=== PATIENT | female | born 1940 | race Caucasian/White ===

== ENCOUNTER 2016-11-14 05:17 | Day surgery (SDC) | payer MEDICARE, OTHER ==
[2016-11-14] MEDS ORDERED: Scopolamine 1.5 MG Transdermal Patch TOP SCH (05:30)
[2016-11-14] MEDS ORDERED: Lactated Ringers 1,000 ML IV SCH (06:00)
[2016-11-14] MEDS ORDERED: ceFAZolin 2 GM in Sodium Chloride 0.9% 50 ML IV ONE (06:30)
[2016-11-14] MEDS ORDERED: Gentamicin 40 MG/ML 2 ML Vial ONE (06:35)
[2016-11-14] MEDS ORDERED: Ketamine 500 MG/5 ML MDV IV SCH (07:30)
[2016-11-14] MEDS ORDERED: Propofol 200 MG/20 ML SDV ONE ×3 (07:47→09:18)
[2016-11-14] MEDS ORDERED: Ketamine 500 MG/5 ML MDV ONE (07:47)
[2016-11-14] MEDS ORDERED: fentaNYL 100 MCG/2 ML SDV ONE (07:47)
[2016-11-14] MEDS ORDERED: Midazolam 1 MG/ML 2 ML SDV ONE (07:47)
[2016-11-14] MEDS: Tranexamic Acid 950 MG in Sodium Chloride 0.9% 50 ML IV SCH ×2 (07:55→10:47)
[2016-11-14] MEDS ORDERED: Ropivacaine 49.25 ML, Ketorolac 30 MG, EPINEPHrine 0.5 MG, cloNIDine 80 MCG, Sodium Chl... INJECT SCH ×5 (08:00)
[2016-11-14] MEDS ORDERED: Lactated Ringers 1,000 ML ONE (09:25)
[2016-11-14] MEDS ORDERED: Ondansetron 4 MG/2 ML SDV IVPUSH PRN (10:41)
[2016-11-14] MEDS ORDERED: Zolpidem 5 MG Tab PO PRN (10:41)
[2016-11-14] MEDS ORDERED: Sennosides 8.6 MG Tab PO PRN (10:41)
[2016-11-14] MEDS ORDERED: Naloxone 0.4 MG/ML SDV IVPUSH PRN (10:41)
[2016-11-14] MEDS ORDERED: traMADol 50 MG Tab PO PRN (10:41)
[2016-11-14] MEDS ORDERED: Bisacodyl 5 MG Tab PO PRN (10:41)
[2016-11-14] MEDS ORDERED: Magnesium Hydroxide 400 MG/5 ML Susp 30 ML Cup PO PRN (10:41)
[2016-11-14] MEDS ORDERED: diphenhydrAMINE 50 MG/ML SDV IVPUSH PRN (10:41)
[2016-11-14] MEDS ORDERED: Aluminum Hydroxide/Magnesium Hydroxide/Simethicone Susp 30 ML Cup PO PRN (10:41)
[2016-11-14] MEDS ORDERED: Docusate Sodium 100 MG Cap PO PRN (10:41)
[2016-11-14] MEDS: Acetaminophen/oxyCODONE 325-5 MG Tab PO PRN ×2 (12:05→20:24)
[2016-11-14] MEDS: SCOPOLAMINE PATCH CHECK TOP SCH (12:09)
--- NOTE | 2016-11-14 12:20 | CR ---
Knee 1V or 2V Lt INDICATION: LEFT KNEE ARTHROPLASTY FINDINGS: Postoperative changes left medial compartment hemiarthroplasty. Negative for postoperative purposes.
[2016-11-14] MEDS: Morphine 2 MG/ML Syringe IVPUSH PRN ×2 (12:43→22:26)
[2016-11-14] MEDS: ceFAZolin 2 GM in Sodium Chloride 0.9% 50 ML IV SCH ×2 (14:27→22:15)
[2016-11-14] MEDS ORDERED: Clindamycin HCl 150 MG Cap PO SCH (16:00)
[2016-11-14] MEDS: Ketorolac 30 MG/ML SDV IVPUSH SCH (16:35)
[2016-11-14] MEDS: Doxycycline 100 MG Cap PO SCH (20:18)
[2016-11-14] MEDS: Trospium 20 MG Tab PO SCH (22:14)
[2016-11-15] MEDS: Ketorolac 30 MG/ML SDV IVPUSH SCH ×2 (01:02→08:55)
[2016-11-15] MEDS: Acetaminophen/oxyCODONE 325-5 MG Tab PO PRN ×3 (05:29→13:19)
[2016-11-15] MEDS: ceFAZolin 2 GM in Sodium Chloride 0.9% 50 ML IV SCH (05:37)
[2016-11-15 07:11] VITALS: BP 147/66
[2016-11-15] MEDS: Pantoprazole 40 MG Tab.CR PO SCH ×2 (07:18→07:37)
[2016-11-15] MEDS: Trospium 20 MG Tab PO SCH (07:45)
[2016-11-15] MEDS: Doxycycline 100 MG Cap PO SCH (07:45)
--- NOTE | 2016-11-15 08:34 | OR ---
DATE OF PROCEDURE: 11/14/2016 PREOPERATIVE DIAGNOSIS: Left knee primary osteoarthritis. POSTOPERATIVE DIAGNOSIS: Left knee primary osteoarthritis. PROCEDURE: Left knee unicompartmental medial arthroplasty. WOODS OVERSEER: Tiara Hicks NP. ANESTHESIA: Spinal plus conscious sedation. FLUID: Lactated Ringer solution. ESTIMATED BLOOD LOSS: 150 mL. COMPLICATIONS: None. SPECIMEN: None. DISCHARGE DISPOSITION: Stable to PACU. HISTORY AND INDICATIONS FOR PROCEDURE: The patient was seen preoperatively in the clinic. She had failed nonoperative treatment. Preoperative imaging confirmed the above-mentioned diagnosis. Risks and benefits of the procedure were explained to the patient. Informed consent was obtained. DETAILS OF PROCEDURE: The patient was seen preoperatively by myself and the Anesthesia Staff in the preop holding area, where the operative site was marked. She was brought to the operative suite by the Anesthesia Staff where spinal anesthesia and conscious sedation was administered. A Rivero catheter was sterilely put in. A well-padded tourniquet was placed on the left thigh. The left leg was placed in a thigh ramos, and the right leg had a pillow. All extremities were found to be well padded. The left lower extremity was then prepped and draped in sterile manner. Time-out was called identifying the correct patient, correct procedure, the correct site, and antibiotics had been given with appropriate period of time. The left lower extremity was then raised and then Esmarch was placed and exsanguinated. Tourniquet was raised to 300 mmHg and taken down 97 minutes after cementing. The incision was made from the medial aspect of the superior pole of the patella down to the level of the medial aspect of the tibial tubercle approximately 3.5 cm distal to the joint line. DLPs were was used for traction and then an arthrotomy was made in the same line. Bleeding was controlled with Bovie electrocautery as well as Aquamantys unit during the procedure. The infrapatellar fat pad was removed as well as the anterior portion of the medial meniscus. The medial proximal tibia was visualized using Bovie electrocautery. I then used the extramedullary tibial. I placed #1 spoon which provided good stability and then used an extramedullary tibial guide for approximately 77 degree slope and removing 2 mm below the deepest part of the eroded medial tibial plateau. I made my vertical cut using a reciprocating saw. After measuring with a hook how far it was to the back and then marking that on my saw. I then cut the horizontal cut. I did use a +2 deborah for that first cut, it was found that when I inserted a 7 mm paddle that this was not deep enough, so I then used my standard and removed a little bit more bone. After this had been accomplished, we measured the base plate against the contralateral trial. I then drilled into the distal femur 1 cm anterior to the medial condyle on its most medial aspect. I then inserted the markell. After that, I nisha the central third of the condyle with a marker and then I inserted my guide and set at 4 mm. I then drilled my 4 mm and 6 mm hole and then removed my femoral guide and then used an 0 spigot to remove a portion of the medial condyle. I then inserted my femoral trial and a baseplate. This measured 4 in flexion at 100 degrees, and I was unable to inserted a #1 plate in extension in 20 degrees of extension. Therefore, I used a #4 spigot and after each time I used a spigot, I used a curved osteotome to remove part of the condyle as well as the area where the spigot inserted. After multiple trials, I finally went to a #5 spigot and #6 spigot. This provided equal stability in 100 degrees of flexion and 20 degrees of extension with a 4 insert. After that had been accomplished, we then focused on preparation. I then inserted my femoral guide and then took off a very small portion of the condyle. Prior to inserting the femoral trial, I did use the guide to make one of my posterior cuts on the posterior aspect of the condyle. Then, having prepared the femur, I then prepared the tibia by using the T hook against the back of the tibia to make sure of that my implant was anterior enough and having inserted the tibial baseplate for preparation. We then used a toothbrush saw and sought out a channel. I then removed the baseplate and then removed the bone from the channel from posterior to anteriorly. After this had been accomplished, we then inserted our final trial components with a 4 insert, this provided excellent stability. During the process of tibial preparation, it was noted that the horizontal cut appeared to be too medially for the baseplate coverage. Therefore, I did take a portion of the tibia which was cut and made a cut of approximately 3.5 mm and inserted this lateral to the baseplate, which provided excellent tracking. We then copiously irrigated with saline and then applied cement to the femur and tibial baseplate, and then placed my bone graft laterally next to the intact plateau and then inserted our femoral trial and a 4 paddle and kept in 45 degrees until cement had hardened. We then cemented our femur in place and let the tourniquet down after cementing. A great deal of care was taken to remove any cement during this process and irrigation was used multiple times in order to make sure that there was no extra cement left. I then inserted a 4 trial and provided excellent tracking. I tried to insert a five, but it was too tight. We then inserted our final #4 implant which provided good stability. I used a small amount of DBX putty over the bone graft, and I made sure that it was not going to come loose as it was held in place also by cement. We then irrigated with saline again, controlled any bleeders with Bovie electrocautery and Aquamantys unit and then closed with two #5 Ethibond and then 0 Vicryl interrupted sutures in a watertight manner followed by 2-0 subcu and 2-0 Monocryl and azucena followed by sterile dressing. The patient was then transferred to hospital bed and taken to the PACU in stable condition. Rivera Ann DO /[id number]
[2016-11-15] MEDS: SCOPOLAMINE PATCH CHECK TOP SCH (08:55)
[2016-11-15] MEDS ORDERED: Aspirin 325 MG Tab.EC PO SCH (09:00)
[2016-11-15] MEDS ORDERED: Sodium Chloride 0.9% 10 ML Syringe FLUSH SCH (09:00)
--- NOTE | 2016-11-15 10:54 | PCM.DCSUM1 ---
Discharge Summary - Hospital Course Free Text/Narrative:: Alicia is a pleasant 76 year old female who is status post op day 1 of a left partial knee replacement. She is doing well. She has no concerns at this time. She states that her pain is under control with oral pain medication. - Discharge Data Discharge Date: 11/15/16 Discharge Disposition: Home, Self-Care 01 Condition: Good - Discharge Diagnosis/Problem(s) (1) Status post left partial knee replacement SNOMED Code(s): 003819490, [id number], [id number] ICD Code: Z96.652 - PRESENCE OF LEFT ARTIFICIAL KNEE JOINT Status: Acute Current Visit: Yes - Patient Summary/Data Consults: Consultations 11/14/16 10:41 OT Evaluation and Treatment [CONS] Routine Please Evaluate and Treat. OT Reason for Consult: Strengthening This query below is only for informational purposes and is not editable. PT Evaluation and Treatment [CONS] Routine Please Evaluate and Treat. PT Reason for Consult: Strengthening This query below is only for informational purposes and is not editable. - Patient Instructions Diet: Usual Diet as Tolerated Activity: Apply Ice, As Tolerated, Elevate Extremity Driving: Do Not Drive Showering/Bathing: May Shower Wound/Incision Care: Keep Operative Site/Wound Site Clean and Dry, Change Dressing Daily Notify Provider of: Fever, Increased Pain, Swelling and Redness - Discharge Plan Prescriptions/Med Rec: Acetaminophen/oxyCODONE [Percocet 325-5 MG] 2 tab PO Q4H PRN #90 tablet PRN Reason: Pain Aspirin [Ecotrin] 325 mg PO DAILY #30 tab.ec Doxycycline Calcium [IMW: Doxycycline] 100 mg PO Q12H 14 Days Home Medications: Home Meds Multivitamin [Multi-Vitamin Daily] 1 each PO BEDTIME 04/22/13 [History] Omeprazole 40 mg PO DAILY 04/22/13 [History] Calcium Citrate/Vitamin D3 [Calcium Citrate + D] 1 tab PO BEDTIME 09/29/15 [ History] Trospium [Sanctura] 20 mg PO BID 09/29/15 [History] Ammonium Lactate [Lac-Hydrin 12% Crm] 1 applic TOP BID 02/14/16 [History] Cyanocobalamin (Vitamin B-12) [Vitamin B-12] 5,000 mcg SL DAILY 09/12/16 [ History] Lactobacillus Acidophilus [Probiotic Acidophilus] 1 each PO DAILY 02/14/16 [ History] Vitamin E 400 unit PO BEDTIME 02/14/16 [History] Bismuth Subsalicylate [Bismatrol] 2 tab PO QID PRN 11/10/16 [History] Gluc 2KCl/Chondr/Rosina Hy/Hy Ac [Glucosamine & Chondroitin Cap] 1 each PO DAILY 11/10/16 [History] Loperamide HCl [Anti-Diarrheal] 2 mg PO QID 11/10/16 [History] Trospium Chloride 20 mg PO BID 11/14/16 [History] Acetaminophen/oxyCODONE [Percocet 325-5 MG] 2 tab PO Q4H PRN #90 tablet [Rx] Aspirin [Ecotrin] 325 mg PO DAILY #30 tab.ec 11/15/16 [Rx] Doxycycline Calcium [IMW: Doxycycline] 100 mg PO Q12H 14 Days 11/15/16 [Rx] Referrals: Tiara Hicks, [facility] [facility] [Nurse Practitioner] - (2 week ortho follow up) - Discharge Summary/Plan Comment Discharge Summary/Plan Comment: At this time we will discharge the patient to home with assistance from her . She has PT appointments made for follow up. I will send her home with oral percocet. I want her to take Aspirin 325 daily for 1 month. She is to follow up with ortho clinic in 2 weeks. She is to increase her fluids to avoid constipation. - Patient Data Vitals - Most Recent: Last Vital Signs Temp 36.0 C 11/15/16 07:10 Pulse 78 11/15/16 07:10 Resp 16 11/15/16 07:10 BP 147/66 H 11/15/16 07:10 Pulse Ox 77 L 11/15/16 07:10 Weight - Most Recent: 202 lb I&O - Last 24 hours: Intake & Output 11/14/16 11/15/16 11/15/16 22:59 06:59 14:59 Intake Total 801 50 Output Total 1350 Balance -549 50 Lab Results - Last 24 hrs: Laboratory Results - last 24 hr 11/15/16 11/15/16 Range/Units 05:34 05:34 WBC 7.5 (4.5-11.0) K/uL RBC 4.22 (3.30-5.50) M/uL Hgb 13.6 (12.0-15.0) g/dL Hct 41.9 (36.0-48.0) % MCV 99 H (80-98) fL MCH 32 H (27-31) pg MCHC 33 (32-36) % Plt Count 167 (150-400) K/uL Neut % (Auto) 60 (36-66) % Lymph % (Auto) 28 (24-44) % [place] % (Auto) 10 H (2-6) % Eos % (Auto) 2 (2-4) % Baso % (Auto) 0 (0-1) % Sodium 139 L (140-148) mmol/L Potassium 3.9 (3.6-5.2) mmol/L Chloride 106 (100-108) mmol/L Carbon Dioxide 27 (21-32) mmol/L Anion Gap 9.9 (5.0-14.0) mmol/L BUN 8 (7-18) mg/dL Creatinine 0.7 (0.6-1.0) mg/dL Est Cr Clr Drug Dosing 56.56 mL/min Estimated GFR (MDRD) > 60 (>60) Glucose 114 H (74-106) mg/dL Calcium 8.6 (8.5-10.1) mg/dL Total Bilirubin 0.6 (0.2-1.0) mg/dL AST 39 H (15-37) U/L ALT 47 (12-78) U/L Alkaline Phosphatase 54 (46-116) U/L Total Protein 5.6 L (6.4-8.2) g/dL Albumin 2.8 L (3.4-5.0) g/dL Globulin 2.8 (2.3-3.5) g/dL Albumin/Globulin Ratio 1.0 L (1.2-2.2) Med Orders - Current: Current Medications Al Hydroxide/Mg Hydroxide (Mag-Al Plus) 30 ml PO Q4H PRN PRN Reason: Constipation Aspirin (Ecotrin) 325 mg PO BID LUIS A Last Admin: 11/15/16 08:55 Dose: 325 mg Bisacodyl (Dulcolax) 10 mg PO DAILY PRN PRN Reason: Constipation Diazepam (Valium) 5 mg IVPUSH Q6H PRN PRN Reason: Spasms Last Admin: 11/15/16 07:37 Dose: 5 mg Diphenhydramine HCl (Benadryl) 25 mg IVPUSH Q4H PRN PRN Reason: Itching Docusate Sodium (Colace) 100 mg PO BID PRN PRN Reason: Constipation Doxycycline Hyclate (Vibramycin) 100 mg PO Q12H [facility] Last Admin: 11/15/16 07:45 Dose: 100 mg Lactated Ringer's (Ringers, Lactated) 1,000 mls @ 0 mls/hr IV ASDIRECTED [facility] PRN Reason: KVO Last Admin: 11/14/16 06:25 Dose: 25 mls/hr Magnesium Hydroxide (Milk Of Magnesia) 30 ml PO BID PRN PRN Reason: Constipation Morphine Sulfate (Morphine) 2 mg IVPUSH Q2H PRN PRN Reason: Pain Last Admin: 11/14/16 22:26 Dose: 1 mg Scopolamine Patch (Check) 1 each TOP DAILY [facility] Last Admin: 11/15/16 08:55 Dose: 1 each Ondansetron HCl (Zofran) 8 mg IVPUSH Q4H PRN PRN Reason: Nausea/Vomiting Oxycodone/Acetaminophen (Percocet 325-5 Mg) 2 tab PO Q4H PRN PRN Reason: Pain Last Admin: 11/15/16 09:32 Dose: 2 tab Pantoprazole Sodium (Protonix) 40 mg PO ACBREAKFAST [facility] Last Admin: 11/15/16 07:37 Dose: 40 mg Scopolamine (Transderm-Scop) 1.5 mg TOP Q72H [facility] Stop: 11/17/16 03:30 Last Admin: 11/14/16 06:23 Dose: 1.5 mg Senna (Senna) 8.6 mg PO BID PRN PRN Reason: Constipation Sodium Chloride (Saline Flush) 10 ml FLUSH DAILY [facility] Last Admin: 11/15/16 08:58 Dose: 10 ml Tramadol HCl (Ultram) 100 mg PO Q6H PRN PRN Reason: Pain Last Admin: 11/14/16 14:27 Dose: 100 mg Trospium (Sanctura) 20 mg PO BIDAC [facility] Last Admin: 11/15/16 07:45 Dose: 20 mg Zolpidem Tartrate (Ambien) 5 mg PO BEDTIME PRN PRN Reason: Sleep Discontinued Medications Clindamycin HCl (Cleocin) 450 mg PO Q6H [facility] Stop: 11/21/16 16:01 Last Admin: 11/14/16 16:19 Dose: 450 mg Ropivacaine 49.25 ml/Ketorolac Tromethamine 30 mg/Epinephrine HCl 0.5 mg/ Clonidine HCl 80 mcg/ Sodium Chloride 48.45 ml 0 ml INJECT ASDIRECTED [facility] Stop: 11/14/16 08:01 Last Admin: 11/14/16 09:18 Dose: 2 syringe Fentanyl (Sublimaze) Confirm Administered Dose 100 mcg .ROUTE .STK-MED ONE Stop: 11/14/16 07:48 Gentamicin Sulfate (Gentamicin) Confirm Administered Dose 320 mg .ROUTE .STK- MED ONE Stop: 11/14/16 06:36 Last Admin: 11/14/16 08:37 Dose: 240 mg Cefazolin Sodium 2 gm/ Sodium (Chloride) 50 mls @ 100 mls/hr IV ONETIME ONE Stop: 11/14/16 06:59 Last Admin: 11/14/16 07:46 Dose: 100 mls/hr Tranexamic Acid 950 mg/ Sodium (Chloride) 59.5 mls @ 238 mls/hr IV Q3H [facility] Stop: 11/14/16 10:44 Last Admin: 11/14/16 10:47 Dose: 238 mls/hr Lactated Ringer's (Ringers, Lactated) Confirm Administered Dose 1,000 mls @ as directed .ROUTE .STK-MED ONE Stop: 11/14/16 09:26 Cefazolin Sodium 2 gm/ Sodium (Chloride) 50 mls @ 100 mls/hr IV Q8H [facility] Stop: 11/15/16 06:29 Last Admin: 11/15/16 05:37 Dose: 100 mls/hr Ketamine HCl (Ketalar) Confirm Administered Dose 500 mg .ROUTE .STK-MED ONE Stop: 11/14/16 07:48 Ketorolac Tromethamine (Toradol) 15 mg IVPUSH Q8H [facility] Stop: 11/15/16 09:01 Last Admin: 11/15/16 08:55 Dose: 15 mg Midazolam HCl (Versed 1 Mg/Ml) Confirm Administered Dose 2 mg .ROUTE .STK-MED ONE Stop: 11/14/16 07:48 Naloxone HCl (Narcan) 0.1 mg IVPUSH ONETIME PRN PRN Reason: Oversedation Stop: 11/14/16 10:42 Propofol (Diprivan 20 Ml) Confirm Administered Dose 200 mg .ROUTE .STK-MED ONE Stop: 11/14/16 07:48 Propofol (Diprivan 20 Ml) Confirm Administered Dose 200 mg .ROUTE .STK-MED ONE Stop: 11/14/16 08:33 Propofol (Diprivan 20 Ml) Confirm Administered Dose 200 mg .ROUTE .STK-MED ONE Stop: 11/14/16 09:19 - Exam General: Reports: alert, oriented Extremities: Reports: no edema, normal pulses, no tenderness/swelling Skin: Reports: warm, dry, intact Wound/Incisions: Reports: healing well, dressing dry and intact, no drainage *Q Meaningful Use (DIS) - VTE *Q VTE Criteria *Q: - Stroke *Q Stroke Criteria *Q: - AMI *Q AMI Criteria *Q:
== END 2016-11-15 14:11 | disposition home or self-care (01) ==
LOC: JP.SDS 05:17 → JP.MS 11:15 → JP.SDS 11-15 14:11
PROVIDERS: ATTEND Orthopaedic Surgery
PROC: 0SRD0L9 Replacement of Left Knee Joint with Medial Unicondylar Synthetic Substitute, Cemented, Open Approach (ICD-10-PCS; principal; 2016-11-14)
DX: M17.12 Unilateral primary osteoarthritis, left knee (principal); E78.00 Pure hypercholesterolemia, unspecified; N39.490 Overflow incontinence; G62.9 Polyneuropathy, unspecified; E66.9 Obesity, unspecified; K31.84 Gastroparesis; K21.9 Gastro-esophageal reflux disease without esophagitis; Z79.82 Long term (current) use of aspirin; Z79.899 Other long term (current) drug therapy
CPT/HCPCS: 27446; 36415; 73560; 80048; 80053; 85025; 85027; 86850; 86900; 86901; 94762; 97110; 97162; 97165; 97530; 97535; A9270; J0690; J1580; J1885; J2250; J2270; J2704; J2795; J3010; J3360; J7050; J7120; C1776

== ENCOUNTER 2017-03-29 07:18 | Day surgery (SDC) | payer MEDICARE, OTHER ==
[~2017-03-29 07:18] MED LIST: Midazolam 1 MG/ML 2 ML SDV ONE; Propofol 200 MG/20 ML SDV ONE; fentaNYL 100 MCG/2 ML SDV ONE
[2017-03-29] MEDS ORDERED: Dextrose 5%-Lactated Ringers 1,000 ML IV SCH (08:30)
[2017-03-29] MEDS ORDERED: Glycopyrrolate 0.2 MG/ML 2 ML SDV IVPUSH ONE (08:30)
[2017-03-29] MEDS ORDERED: Ampicillin/Sulbactam Na 3 GM in Sodium Chloride 0.9% 100 ML IV ONE (09:00)
[2017-03-29] MEDS ORDERED: Glycopyrrolate 0.2 MG/ML 5 ML MDV ONE (09:36)
[2017-03-29] MEDS ORDERED: Rocuronium 50 MG/5 ML Vial ONE (09:36)
[2017-03-29] MEDS ORDERED: Ondansetron 4 MG/2 ML SDV ONE (09:36)
[2017-03-29] MEDS ORDERED: Succinylcholine 200 MG/10 ML MDV ONE (09:36)
[2017-03-29] MEDS ORDERED: Dexamethasone 4 MG/ML SDV ONE (09:36)
[2017-03-29] MEDS ORDERED: Neostigmine Methylsulfate 1 MG/ML 5 ML Syringe ONE (09:36)
[2017-03-29] MEDS ORDERED: fentaNYL 100 MCG/2 ML SDV ONE (09:37)
[2017-03-29] MEDS ORDERED: Lactated Ringers 1,000 ML ONE (09:38)
[2017-03-29 12:04] VITALS: BP 157/98
--- NOTE | 2017-04-02 17:52 | OR ---
DATE OF PROCEDURE: 03/29/2017 PREOPERATIVE DIAGNOSIS: History of Schultz's esophagus. POSTOPERATIVE DIAGNOSES: 1. History of Schultz's esophagus without significant inflammation of the esophagogastric junction. 2. Mild antral gastritis. OPERATIVE PROCEDURE: Esophagogastroduodenoscopy with: 1. Biopsies of antrum for SUE test. 2. Biopsies of esophagogastric junction for histologic evaluation. ANESTHESIA: IV sedation. INDICATIONS FOR PROCEDURE: A 76-year-old female presenting after followup of her Schultz's esophagus. She is presently on omeprazole 40 mg a day. From a reflux standpoint, she appears to be well controlled. Of note, she recently was seen by the Gastroenterology people in [place] and started on anti- diarrhea regimen, which has been very effective. The plan is to proceed with upper GI endoscope with biopsies as indicated. Potential risks, including bleeding and perforation, were discussed and the patient wishes to proceed. DETAILS OF THE PROCEDURE: The patient was taken to the operating room, placed in a left lateral decubitus position. IV sedation was administered, after which the upper GI endoscope was passed orally through the length of the esophagus, into the stomach with retroflex view of the fundus, and thereafter through the pyloric channel and into the proximal duodenum. Findings included normal hypopharynx, larynx, upper esophageal sphincter, and esophageal body. At the EG junction, a small hiatal hernia was present. There was visible upward extension of the esophagogastric junction, but this was not associated with any significant gross information. Apart from that, within the antrum, there was some mild gastritis without erosions or ulcers, and the pyloric channel and duodenum to the junction of the third and fourth portions were unremarkable. At this point, biopsies were obtained from the antrum, sent for SUE test for H. pylori, and then multiple biopsies were obtained circumferentially from the distal esophagus, focussing on the areas of probable Schultz's esophagus. Minimal bleeding from the biopsy sites was seen, and the procedure was then concluded. The patient was taken to the recovery room in satisfactory condition. At this point, we will have the patient continued on omeprazole 40 mg a day, and followup endoscopy should be in 2 years for surveillance of the Schultz's esophagus. Jeromy Ann MD /[id number] [facility]
== END 2017-03-29 12:15 | disposition home or self-care (01) ==
LOC: JP.SDS 07:18
PROVIDERS: ATTEND Surgery
DX: K29.50 Unspecified chronic gastritis without bleeding (principal); K44.9 Diaphragmatic hernia without obstruction or gangrene; K21.9 Gastro-esophageal reflux disease without esophagitis; Z88.2 Allergy status to sulfonamides; Z91.011 Allergy to milk products; Z88.8 Allergy status to other drugs, medicaments and biological substances; Z91.018 Allergy to other foods
CPT/HCPCS: 43239; 87081; J0330; J1100; J2250; J2405; J2704; J2710; J3010; J7042; J7120; 88305; J0295; J3490; J7030

== ENCOUNTER 2017-04-06 08:37 | Inpatient (IN) | payer MEDICARE, OTHER ==
[2017-04-11] MEDS ORDERED: Scopolamine 1.5 MG Transdermal Patch TOP SCH (05:45)
[2017-04-11] MEDS ORDERED: Gabapentin 300 MG Cap PO ONE (05:45)
[2017-04-11] MEDS ORDERED: Lactated Ringers 1,000 ML IV SCH (06:00)
[2017-04-11] MEDS ORDERED: ceFAZolin 2 GM in Premix Bag 1 BAG IV ONE (06:30)
[2017-04-11] MEDS ORDERED: Thrombin (Bovine) 5,000 Unit Kit ONE (06:49)
[2017-04-11] MEDS ORDERED: Povidone-Iodine 10% Soln 118.25 ML Bottle ONE (06:49)
[2017-04-11] MEDS ORDERED: Glycopyrrolate 0.2 MG/ML 5 ML MDV ONE (07:15)
[2017-04-11] MEDS ORDERED: Ondansetron 4 MG/2 ML SDV ONE (07:15)
[2017-04-11] MEDS ORDERED: ceFAZolin 2 GM in Sodium Chloride 0.9% 50 ML IV ONE (07:15)
[2017-04-11] MEDS ORDERED: Neostigmine Methylsulfate 1 MG/ML 5 ML Syringe ONE (07:15)
[2017-04-11] MEDS ORDERED: Dexamethasone 4 MG/ML SDV ONE (07:15)
[2017-04-11] MEDS ORDERED: Succinylcholine 200 MG/10 ML MDV ONE (07:15)
[2017-04-11] MEDS ORDERED: Propofol 200 MG/20 ML SDV ONE ×4 (07:15→09:08)
[2017-04-11] MEDS ORDERED: Rocuronium 50 MG/5 ML Vial ONE (07:15)
[2017-04-11] MEDS: SODIUM CHLORIDE 0.9% IV SCH ×2 (07:35→10:31)
[2017-04-11] MEDS ORDERED: Vancomycin 1 GM SDV ONE (07:35)
[2017-04-11] MEDS: TRANEXAMIC ACID IV SCH ×2 (07:35→10:31)
[2017-04-11] MEDS ORDERED: Ketamine 500 MG/5 ML MDV IV SCH (07:45)
[2017-04-11] MEDS ORDERED: Ropivacaine 49.25 ML, Ketorolac 30 MG, EPINEPHrine 0.5 MG, cloNIDine 80 MCG, Sodium Chl... INJECT ONE ×5 (07:45)
[2017-04-11] MEDS ORDERED: fentaNYL 100 MCG/2 ML SDV ONE ×2 (08:51→09:20)
[2017-04-11] MEDS ORDERED: Zolpidem 5 MG Tab PO PRN (10:20)
[2017-04-11] MEDS ORDERED: oxyCODONE 5 MG Tab PO PRN (10:20)
[2017-04-11] MEDS ORDERED: HYDROmorphone 1 MG/ML Syringe IVPUSH PRN ×2 (10:20→11:42)
[2017-04-11] MEDS ORDERED: Naloxone 0.4 MG/ML SDV IVPUSH PRN (10:20)
[2017-04-11] MEDS ORDERED: Magnesium Hydroxide 400 MG/5 ML Susp 30 ML Cup PO PRN (10:20)
[2017-04-11] MEDS ORDERED: Ondansetron 4 MG/2 ML SDV IVPUSH PRN (10:20)
[2017-04-11] MEDS ORDERED: Aluminum Hydroxide/Magnesium Hydroxide/Simethicone Susp 30 ML Cup PO PRN (10:20)
[2017-04-11] MEDS ORDERED: ceFAZolin 2 GM in Sodium Chloride 0.9% 50 ML IV SCH (10:30)
[2017-04-11] MEDS ORDERED: Acetaminophen 1,000 MG in Premix Bag 1 BAG IV ONE (10:40)
[2017-04-11] MEDS ORDERED: Diazepam 5 MG Tab PO PRN (10:51)
[2017-04-11] MEDS: oxyCODONE 5 MG Tab PO PRN ×3 (11:55→20:22)
--- NOTE | 2017-04-11 12:28 | PCM.PN ---
- General Info Date of Service: 04/11/17 Functional Status: Reports: Pain Controlled - Review of Systems Musculoskeletal: Reports: Back Pain Neurological: Denies: Numbness, Tingling Systems Review Comment:: no acute events since surgery. Vital signs have been stable. Pain is moderate but tolerable at this time. Able to wiggle her toes. No paresthesias. No shortness of breath. - Patient Data Vitals - Most Recent: Last Vital Signs Temp 35.5 C 04/11/17 11:25 Pulse 80 04/11/17 12:10 Resp 16 04/11/17 12:10 BP 133/103 H 04/11/17 12:10 Pulse Ox 95 04/11/17 12:14 Weight - Most Recent: 93.531 kg I&O - Last 24 Hours: Intake & Output 04/10/17 04/11/17 04/11/17 22:59 06:59 14:59 Output Total 620 Balance -620 Lab Results Last 24 Hours: Laboratory Results - last 24 hr 04/11/17 04/11/17 Range/Units 06:00 10:25 Urine Color Yellow Urine Appearance Slightly cloudy Urine pH 5.0 (4.5-8.0) Ur Specific [place] 1.025 (1.008-1.030) Urine Protein Negative (NEGATIVE) mg/dL Urine Glucose (UA) Normal (NEGATIVE) mg/dL Urine Ketones Negative (NEGATIVE) mg/dL Urine Occult Blood Negative (NEGATIVE) Urine Nitrite Negative (NEGATIVE) Urine Bilirubin Negative (NEGATIVE) Urine Urobilinogen Normal (NORMAL) mg/dL Ur Leukocyte Esterase Negative (NEGATIVE) Urine RBC 0-5 (0-5) Urine WBC 0-5 (0-5) Ur Epithelial Cells Few Amorphous Sediment Many Urine Bacteria Few Urine Mucus Not seen Blood Type A POSITIVE Gel Antibody Screen Negative Med Orders - Current: Current Medications Al Hydroxide/Mg Hydroxide (Mag-Al Plus) 30 ml PO Q4H PRN PRN Reason: Indigestion Diazepam (Valium.) 5 mg PO Q6H PRN PRN Reason: Spasms Hydromorphone HCl (Dilaudid) 1 mg IVPUSH Q2H PRN PRN Reason: Pain Stop: 04/12/17 10:21 Lactated Ringer's (Ringers, Lactated) 1,000 mls @ 100 mls/hr IV ASDIRECTED [facility] Last Admin: 04/11/17 06:18 Dose: 100 mls/hr Cefazolin Sodium 2 gm/ Sodium (Chloride) 50 mls @ 100 mls/hr IV Q8H [facility] Stop: 04/12/17 06:59 Lactobacillus Rhamnosus (Culturelle) 1 cap PO DAILY [facility] Magnesium Hydroxide (Milk Of Magnesia) 30 ml PO BID PRN PRN Reason: Constipation Naloxone HCl (Narcan) 0.2 mg IVPUSH ONETIME PRN PRN Reason: Oversedation Non-Formulary Medication (Trospium [Sanctura]) 20 mg PO BID [facility] Ondansetron HCl (Zofran) 8 mg IVPUSH Q4H PRN PRN Reason: Nausea/Vomiting Oxycodone HCl (Oxycodone) 10 mg PO Q4H PRN PRN Reason: Pain Stop: 04/12/17 10:21 Last Admin: 04/11/17 11:55 Dose: 10 mg Oxycodone/Acetaminophen (Percocet 325-5 Mg) 2 tab PO Q4H PRN PRN Reason: Pain Pantoprazole Sodium (Protonix) 40 mg PO ACBREAKFAST [facility] Scopolamine (Transderm-Scop) 1.5 mg TOP Q72H [facility] Stop: 04/14/17 02:00 Last Admin: 04/11/17 05:58 Dose: 1.5 mg Senna (Senna) 8.6 mg PO BID PRN PRN Reason: Constipation Zolpidem Tartrate (Ambien) 5 mg PO BEDTIME PRN PRN Reason: Sleep Discontinued Medications Ropivacaine 49.25 ml/Ketorolac Tromethamine 30 mg/Epinephrine HCl 0.5 mg/ Clonidine HCl 80 mcg/ Sodium Chloride 48.45 ml 0 ml INJECT ONETIME ONE Stop: 04/11/17 07:46 Last Admin: 04/11/17 08:05 Dose: 50 ml Dexamethasone (Dexamethasone) Confirm Administered Dose 4 mg .ROUTE .STK-MED ONE Stop: 04/11/17 07:16 Diazepam (Valium) 5 mg IVPUSH Q6H PRN PRN Reason: Spasms Fentanyl (Sublimaze) Confirm Administered Dose 100 mcg .ROUTE .STK-MED ONE Stop: 04/11/17 08:52 Fentanyl (Sublimaze) Confirm Administered Dose 100 mcg .ROUTE .STK-MED ONE Stop: 04/11/17 09:21 Fentanyl Citrate (Fentanyl) Confirm Administered Dose 500 mcg .ROUTE .STK-MED ONE Stop: 04/11/17 07:16 Gabapentin (Neurontin) 300 mg PO ONETIME ONE Stop: 04/11/17 05:46 Last Admin: 04/11/17 05:58 Dose: 300 mg Glycopyrrolate (Robinul) Confirm Administered Dose 1 mg .ROUTE .STK-MED ONE Stop: 04/11/17 07:16 Hydromorphone HCl (Dilaudid) 1 mg IVPUSH Q2H PRN PRN Reason: Pain Stop: 04/12/17 10:21 Tranexamic Acid 930 mg/ Sodium (Chloride) 59.3 mls @ 237.2 mls/hr IV Q3H [facility] Stop: 04/11/17 10:59 Last Admin: 04/11/17 10:31 Dose: 237.2 mls/hr Ketamine HCl 100 mg/ Sodium (Chloride) 100 mls @ 15 mls/hr IV ASDIRECTED [facility] Cefazolin Sodium 2 gm/ Sodium (Chloride) 50 mls @ 100 mls/hr IV ONETIME ONE Stop: 04/11/17 07:44 Last Admin: 04/11/17 07:15 Dose: 100 mls/hr Vancomycin HCl 1 gm/ Sodium (Chloride) 250 mls @ 250 mls/hr IV ONETIME ONE Stop: 04/11/17 08:59 Last Admin: 04/11/17 08:05 Dose: 250 mls/hr Acetaminophen 1,000 mg/ Premix 100 mls @ 400 mls/hr IV NOW ONE Stop: 04/11/17 10:54 Last Admin: 04/11/17 10:44 Dose: 400 mls/hr Cefazolin Sodium 2 gm/ Sodium (Chloride) 50 mls @ 100 mls/hr IV Q8H [facility] Stop: 04/12/17 02:59 Ketamine HCl (Ketalar) 26 mg IV ASDIRECTED [facility] Neostigmine Methylsulfate (Neostigmine) Confirm Administered Dose 5 mg .ROUTE .STK-MED ONE Stop: 04/11/17 07:16 Ondansetron HCl (Zofran) Confirm Administered Dose 4 mg .ROUTE .STK-MED ONE Stop: 04/11/17 07:16 Oxycodone HCl (Oxycodone) 10 mg PO Q4H PRN PRN Reason: Pain Stop: 04/12/17 10:21 Oxycodone/Acetaminophen (Percocet 325-5 Mg) 2 tab PO Q4H PRN PRN Reason: Pain Povidone Iodine (Betadine 10% Soln) Confirm Administered Dose 1 ml .ROUTE .STK- MED ONE Stop: 04/11/17 06:50 Last Admin: 04/11/17 08:31 Dose: 1 ml Propofol (Diprivan 20 Ml) Confirm Administered Dose 200 mg .ROUTE .STK-MED ONE Stop: 04/11/17 07:16 Propofol (Diprivan 20 Ml) Confirm Administered Dose 400 mg .ROUTE .STK-MED ONE Stop: 04/11/17 07:22 Propofol (Diprivan 20 Ml) Confirm Administered Dose 200 mg .ROUTE .STK-MED ONE Stop: 04/11/17 08:35 Propofol (Diprivan 20 Ml) Confirm Administered Dose 200 mg .ROUTE .STK-MED ONE Stop: 04/11/17 09:09 Rocuronium [place] (Zemuron) Confirm Administered Dose 50 mg .ROUTE .STK-MED ONE Stop: 04/11/17 07:16 Succinylcholine Chloride (Quelicin) Confirm Administered Dose 200 mg .ROUTE .STK -MED ONE Stop: 04/11/17 07:16 Thrombin (Thrombin-Jmi) Confirm Administered Dose 15,000 unit .ROUTE .STK-MED ONE Stop: 04/11/17 06:50 Last Admin: 04/11/17 08:32 Dose: 10,000 unit Vancomycin HCl (Vancomycin) Confirm Administered Dose 1 gm .ROUTE .STK-MED ONE Stop: 04/11/17 07:36 Last Admin: 04/11/17 08:32 Dose: 1 gm - Exam Quality Assessment: Restraints. No: Supplemental Oxygen General: Alert, Oriented, Cooperative, No Acute Distress Neck: Supple Lungs: Clear to Auscultation, Normal Respiratory Effort Cardiovascular: Regular Rate, Regular Rhythm, No Murmurs GI/Abdominal Exam: Soft, No Distention Extremities: No Pedal Edema, Other (able to wiggle toes on both feet). No: Increased Warmth Skin: Warm, Dry Neurological: Sensation Intact (both feet) Psy/Mental Status: Alert, Normal Affect - Problem List Review Problem List Initiated/Reviewed/Updated: Yes - My Orders Last 24 Hours: My Active Orders 04/11/17 21:00 Trospium [Sanctura] 20 mg PO BID 04/12/17 07:30 Pantoprazole [ProTONIX] 40 mg PO ACBREAKFAST 04/12/17 09:00 Lactobacillus Rhamnosus GG [Culturelle] 1 cap PO DAILY - Plan Plan:: ASSESSMENT AND PLAN - Spinal stenosis status postlumbar TLIF L4-L5 - vitals stable. Pain is moderate at this time but tolerable. No paresthesias and good function of the legs so far. -Postop cares per surgical team including physical therapy Overactive bladder syndrome - symptoms have been stable. -Continue trospium Maintenance issues - - DVT prophylaxis - per orthopedics team - GI prophylaxis - PPI - Nutrition - advance diet as tolerated Disposition - anticipate discharge to home after the hospital stay Tato Morales M.D.
[2017-04-11] MEDS: ceFAZolin 2 GM in Sodium Chloride 0.9% 50 ML IV SCH ×2 (14:33→22:06)
[2017-04-11] MEDS: VERIFY SCOP PATCH TOP SCH (15:11)
[2017-04-11] MEDS ORDERED: TROSPIUM 20 MG PO SCH (21:00)
[2017-04-11] MEDS: Trospium 20 MG Tab PO SCH (21:37)
[2017-04-12] MEDS: oxyCODONE 5 MG Tab PO PRN ×2 (02:46→06:39)
[2017-04-12] MEDS: ceFAZolin 2 GM in Sodium Chloride 0.9% 50 ML IV SCH (05:30)
[2017-04-12] MEDS: Pantoprazole 40 MG Tab.CR PO SCH (06:39)
[2017-04-12] MEDS: Lactobacillus Rhamnosus GG (Probiotic) Cap PO SCH (09:28)
[2017-04-12] MEDS: Trospium 20 MG Tab PO SCH ×2 (09:28→21:04)
[2017-04-12] MEDS: VERIFY SCOP PATCH TOP SCH (09:30)
--- NOTE | 2017-04-12 09:52 | PCM.PN ---
- General Info Functional Status: Reports: Pain Controlled - Review of Systems General: Reports: No Symptoms HEENT: Reports: No Symptoms Pulmonary: Reports: No Symptoms Cardiovascular: Reports: No Symptoms Gastrointestinal: Reports: No Symptoms Genitourinary: Reports: No Symptoms Musculoskeletal: Reports: Back Pain Skin: Reports: No Symptoms Neurological: Reports: No Symptoms Psychiatric: Reports: No Symptoms - Patient Data Vitals - Most Recent: Last Vital Signs Temp 97.9 F 04/12/17 07:12 Pulse 80 04/12/17 07:12 Resp 16 04/12/17 07:12 BP 110/62 04/12/17 07:12 Pulse Ox 97 04/12/17 07:12 Weight - Most Recent: 206 lb 3.2 oz I&O - Last 24 Hours: Intake & Output 04/11/17 04/12/17 04/12/17 22:59 06:59 14:59 Intake Total 1946 450 Output Total 700 500 200 Balance 1246 -50 -200 Lab Results Last 24 Hours: Laboratory Results - last 24 hr 04/11/17 Range/Units 10:25 Urine Color Yellow Urine Appearance Slightly cloudy Urine pH 5.0 (4.5-8.0) Ur Specific [place] 1.025 (1.008-1.030) Urine Protein Negative (NEGATIVE) mg/dL Urine Glucose (UA) Normal (NEGATIVE) mg/dL Urine Ketones Negative (NEGATIVE) mg/dL Urine Occult Blood Negative (NEGATIVE) Urine Nitrite Negative (NEGATIVE) Urine Bilirubin Negative (NEGATIVE) Urine Urobilinogen Normal (NORMAL) mg/dL Ur Leukocyte Esterase Negative (NEGATIVE) Urine RBC 0-5 (0-5) Urine WBC 0-5 (0-5) Ur Epithelial Cells Few Amorphous Sediment Many Urine Bacteria Few Urine Mucus Not seen Med Orders - Current: Current Medications Al Hydroxide/Mg Hydroxide (Mag-Al Plus) 30 ml PO Q4H PRN PRN Reason: Indigestion Diazepam (Valium.) 5 mg PO Q6H PRN PRN Reason: Spasms Lactobacillus Rhamnosus (Culturelle) 1 cap PO DAILY [facility] Last Admin: 04/12/17 09:28 Dose: 1 cap Magnesium Hydroxide (Milk Of Magnesia) 30 ml PO BID PRN PRN Reason: Constipation Naloxone HCl (Narcan) 0.2 mg IVPUSH ONETIME PRN PRN Reason: Oversedation Verify Scop Patch 0 each TOP DAILY [facility] Last Admin: 04/12/17 09:30 Dose: 1 each Ondansetron HCl (Zofran) 8 mg IVPUSH Q4H PRN PRN Reason: Nausea/Vomiting Oxycodone HCl (Oxycodone) 10 mg PO Q4H PRN PRN Reason: Pain Stop: 04/12/17 10:21 Last Admin: 04/12/17 06:39 Dose: 10 mg Oxycodone/Acetaminophen (Percocet 325-5 Mg) 2 tab PO Q4H PRN PRN Reason: Pain Pantoprazole Sodium (Protonix) 40 mg PO ACBREAKFAST [facility] Last Admin: 04/12/17 06:39 Dose: 40 mg Scopolamine (Transderm-Scop) 1.5 mg TOP Q72H [facility] Stop: 04/14/17 02:00 Last Admin: 04/11/17 05:58 Dose: 1.5 mg Senna (Senna) 8.6 mg PO BID PRN PRN Reason: Constipation Trospium (Sanctura) 20 mg PO BID [facility] Last Admin: 04/12/17 09:28 Dose: 20 mg Zolpidem Tartrate (Ambien) 5 mg PO BEDTIME PRN PRN Reason: Sleep Discontinued Medications Ropivacaine 49.25 ml/Ketorolac Tromethamine 30 mg/Epinephrine HCl 0.5 mg/ Clonidine HCl 80 mcg/ Sodium Chloride 48.45 ml 0 ml INJECT ONETIME ONE Stop: 04/11/17 07:46 Last Admin: 04/11/17 08:05 Dose: 50 ml Dexamethasone (Dexamethasone) Confirm Administered Dose 4 mg .ROUTE .STK-MED ONE Stop: 04/11/17 07:16 Diazepam (Valium) 5 mg IVPUSH Q6H PRN PRN Reason: Spasms Fentanyl (Sublimaze) Confirm Administered Dose 100 mcg .ROUTE .STK-MED ONE Stop: 04/11/17 08:52 Fentanyl (Sublimaze) Confirm Administered Dose 100 mcg .ROUTE .STK-MED ONE Stop: 04/11/17 09:21 Fentanyl Citrate (Fentanyl) Confirm Administered Dose 500 mcg .ROUTE .STK-MED ONE Stop: 04/11/17 07:16 Gabapentin (Neurontin) 300 mg PO ONETIME ONE Stop: 04/11/17 05:46 Last Admin: 04/11/17 05:58 Dose: 300 mg Glycopyrrolate (Robinul) Confirm Administered Dose 1 mg .ROUTE .STK-MED ONE Stop: 04/11/17 07:16 Hydromorphone HCl (Dilaudid) 1 mg IVPUSH Q2H PRN PRN Reason: Pain Stop: 04/12/17 10:21 Tranexamic Acid 930 mg/ Sodium (Chloride) 59.3 mls @ 237.2 mls/hr IV Q3H [facility] Stop: 04/11/17 10:59 Last Admin: 04/11/17 10:31 Dose: 237.2 mls/hr Ketamine HCl 100 mg/ Sodium (Chloride) 100 mls @ 15 mls/hr IV ASDIRECTED [facility] Lactated Ringer's (Ringers, Lactated) 1,000 mls @ 100 mls/hr IV ASDIRECTED [facility] Last Admin: 04/11/17 06:18 Dose: 100 mls/hr Cefazolin Sodium 2 gm/ Sodium (Chloride) 50 mls @ 100 mls/hr IV ONETIME ONE Stop: 04/11/17 07:44 Last Admin: 04/11/17 07:15 Dose: 100 mls/hr Vancomycin HCl 1 gm/ Sodium (Chloride) 250 mls @ 250 mls/hr IV ONETIME ONE Stop: 04/11/17 08:59 Last Admin: 04/11/17 08:05 Dose: 250 mls/hr Acetaminophen 1,000 mg/ Premix 100 mls @ 400 mls/hr IV NOW ONE Stop: 04/11/17 10:54 Last Admin: 04/11/17 10:44 Dose: 400 mls/hr Cefazolin Sodium 2 gm/ Sodium (Chloride) 50 mls @ 100 mls/hr IV Q8H [facility] Stop: 04/12/17 02:59 Last Admin: 04/11/17 12:35 Dose: Not Given Cefazolin Sodium 2 gm/ Sodium (Chloride) 50 mls @ 100 mls/hr IV Q8H [facility] Stop: 04/12/17 06:59 Last Admin: 04/12/17 05:30 Dose: 100 mls/hr Ketamine HCl (Ketalar) 26 mg IV ASDIRECTED [facility] Neostigmine Methylsulfate (Neostigmine) Confirm Administered Dose 5 mg .ROUTE .STK-MED ONE Stop: 04/11/17 07:16 Ondansetron HCl (Zofran) Confirm Administered Dose 4 mg .ROUTE .STK-MED ONE Stop: 04/11/17 07:16 Oxycodone HCl (Oxycodone) 10 mg PO Q4H PRN PRN Reason: Pain Stop: 04/12/17 10:21 Oxycodone/Acetaminophen (Percocet 325-5 Mg) 2 tab PO Q4H PRN PRN Reason: Pain Povidone Iodine (Betadine 10% Soln) Confirm Administered Dose 1 ml .ROUTE .STK- MED ONE Stop: 04/11/17 06:50 Last Admin: 04/11/17 08:31 Dose: 1 ml Propofol (Diprivan 20 Ml) Confirm Administered Dose 200 mg .ROUTE .STK-MED ONE Stop: 04/11/17 07:16 Propofol (Diprivan 20 Ml) Confirm Administered Dose 400 mg .ROUTE .STK-MED ONE Stop: 04/11/17 07:22 Propofol (Diprivan 20 Ml) Confirm Administered Dose 200 mg .ROUTE .STK-MED ONE Stop: 04/11/17 08:35 Propofol (Diprivan 20 Ml) Confirm Administered Dose 200 mg .ROUTE .STK-MED ONE Stop: 04/11/17 09:09 Rocuronium [place] (Zemuron) Confirm Administered Dose 50 mg .ROUTE .STK-MED ONE Stop: 04/11/17 07:16 Succinylcholine Chloride (Quelicin) Confirm Administered Dose 200 mg .ROUTE .STK -MED ONE Stop: 04/11/17 07:16 Thrombin (Thrombin-Jmi) Confirm Administered Dose 15,000 unit .ROUTE .STK-MED ONE Stop: 04/11/17 06:50 Last Admin: 04/11/17 08:32 Dose: 15,000 unit Vancomycin HCl (Vancomycin) Confirm Administered Dose 1 gm .ROUTE .STK-MED ONE Stop: 04/11/17 07:36 Last Admin: 04/11/17 08:32 Dose: 1 gm - Exam General: Alert, Oriented HEENT: Pupils Equal, Pupils Reactive, EOMI, Mucous Membr. Moist/[place] Lungs: Normal Respiratory Effort Back Exam: Normal Inspection, Paraspinal Tenderness Extremities: Normal Inspection, Normal Range of Motion, Non-Tender, No Pedal Edema, Normal Capillary Refill Skin: Warm, Dry, Intact Wound/Incisions: Healing Well, Dressing Dry and Intact Neurological: No New Focal Deficit Psy/Mental Status: Alert, Normal Affect, Normal Mood - Problem List & Annotations (1) Spinal stenosis of lumbar region SNOMED Code(s): 24228740 Code(s): M48.06 - SPINAL STENOSIS, LUMBAR REGION * DO NOT USE * Status: Chronic Current Visit: No Qualifiers: Neurogenic claudication status: without neurogenic claudication Qualified Code(s): M48.061 - Spinal stenosis, lumbar region without neurogenic claudication (2) Spondylolisthesis, lumbar region SNOMED Code(s): 210296827019819 Code(s): M43.16 - SPONDYLOLISTHESIS, LUMBAR REGION Status: Chronic Current Visit: No - Problem List Review Problem List Initiated/Reviewed/Updated: Yes - My Orders Last 24 Hours: My Active Orders 04/11/17 14:00 Non-Formulary Medication [NF Drug] 0 each TOP DAILY - Plan Plan:: A: POD 1 TLIF L4-5 P: pt, ot, pain control, scd for dvt prophylaxis, brace oob The patient is doing extremely well postoperative day 1 after transforaminal lumbar interbody fusion. Her left leg pain is gone. She is no longer experiencing symptoms of neurogenic claudication. She is only having incisional pain. She is urinating without difficulty on her own after removing the [place] catheter yesterday evening. She has been passing gas. She is eating well. I will keep her overnight and plan on discharge tomorrow.
[2017-04-12] MEDS ORDERED: Acetaminophen/oxyCODONE 325-5 MG Tab PO PRN (10:21)
[2017-04-12] MEDS: Acetaminophen/oxyCODONE 325-5 MG Tab PO PRN ×4 (10:34→21:09)
--- NOTE | 2017-04-12 10:43 | PCM.PN ---
- General Info Date of Service: 04/12/17 Functional Status: Reports: Pain Controlled, Tolerating Diet, Ambulating - Review of Systems General: Denies: Fever Musculoskeletal: Reports: Back Pain (mild) Neurological: Denies: Numbness, Paresthesia, Tingling Systems Review Comment:: No acute events overnight. Ambulating without difficulty. Pain well-controlled. No fevers. Mild swelling of the left eye this morning which has resolved without intervention. - Patient Data Vitals - Most Recent: Last Vital Signs Temp 36.6 C 04/12/17 07:12 Pulse 80 04/12/17 07:12 Resp 16 04/12/17 07:12 BP 110/62 04/12/17 07:12 Pulse Ox 97 04/12/17 07:12 Weight - Most Recent: 93.531 kg I&O - Last 24 Hours: Intake & Output 04/11/17 04/12/17 04/12/17 22:59 06:59 14:59 Intake Total 1946 450 Output Total 700 500 200 Balance 1246 -50 -200 Lab Results Last 24 Hours: Laboratory Results - last 24 hr 04/11/17 Range/Units 10:25 Urine Color Yellow Urine Appearance Slightly cloudy Urine pH 5.0 (4.5-8.0) Ur Specific [place] 1.025 (1.008-1.030) Urine Protein Negative (NEGATIVE) mg/dL Urine Glucose (UA) Normal (NEGATIVE) mg/dL Urine Ketones Negative (NEGATIVE) mg/dL Urine Occult Blood Negative (NEGATIVE) Urine Nitrite Negative (NEGATIVE) Urine Bilirubin Negative (NEGATIVE) Urine Urobilinogen Normal (NORMAL) mg/dL Ur Leukocyte Esterase Negative (NEGATIVE) Urine RBC 0-5 (0-5) Urine WBC 0-5 (0-5) Ur Epithelial Cells Few Amorphous Sediment Many Urine Bacteria Few Urine Mucus Not seen Med Orders - Current: Current Medications Al Hydroxide/Mg Hydroxide (Mag-Al Plus) 30 ml PO Q4H PRN PRN Reason: Indigestion Diazepam (Valium.) 5 mg PO Q6H PRN PRN Reason: Spasms Lactobacillus Rhamnosus (Culturelle) 1 cap PO DAILY [facility] Last Admin: 04/12/17 09:28 Dose: 1 cap Magnesium Hydroxide (Milk Of Magnesia) 30 ml PO BID PRN PRN Reason: Constipation Naloxone HCl (Narcan) 0.2 mg IVPUSH ONETIME PRN PRN Reason: Oversedation Verify Scop Patch 0 each TOP DAILY [facility] Last Admin: 04/12/17 09:30 Dose: 1 each Ondansetron HCl (Zofran) 8 mg IVPUSH Q4H PRN PRN Reason: Nausea/Vomiting Oxycodone/Acetaminophen (Percocet 325-5 Mg) 2 tab PO Q4H PRN PRN Reason: Pain Last Admin: 04/12/17 10:34 Dose: 2 tab Pantoprazole Sodium (Protonix) 40 mg PO ACBREAKFAST [facility] Last Admin: 04/12/17 06:39 Dose: 40 mg Scopolamine (Transderm-Scop) 1.5 mg TOP Q72H [facility] Stop: 04/14/17 02:00 Last Admin: 04/11/17 05:58 Dose: 1.5 mg Senna (Senna) 8.6 mg PO BID PRN PRN Reason: Constipation Trospium (Sanctura) 20 mg PO BID [facility] Last Admin: 04/12/17 09:28 Dose: 20 mg Zolpidem Tartrate (Ambien) 5 mg PO BEDTIME PRN PRN Reason: Sleep Discontinued Medications Ropivacaine 49.25 ml/Ketorolac Tromethamine 30 mg/Epinephrine HCl 0.5 mg/ Clonidine HCl 80 mcg/ Sodium Chloride 48.45 ml 0 ml INJECT ONETIME ONE Stop: 04/11/17 07:46 Last Admin: 04/11/17 08:05 Dose: 50 ml Dexamethasone (Dexamethasone) Confirm Administered Dose 4 mg .ROUTE .STK-MED ONE Stop: 04/11/17 07:16 Diazepam (Valium) 5 mg IVPUSH Q6H PRN PRN Reason: Spasms Fentanyl (Sublimaze) Confirm Administered Dose 100 mcg .ROUTE .STK-MED ONE Stop: 04/11/17 08:52 Fentanyl (Sublimaze) Confirm Administered Dose 100 mcg .ROUTE .STK-MED ONE Stop: 04/11/17 09:21 Fentanyl Citrate (Fentanyl) Confirm Administered Dose 500 mcg .ROUTE .STK-MED ONE Stop: 04/11/17 07:16 Gabapentin (Neurontin) 300 mg PO ONETIME ONE Stop: 04/11/17 05:46 Last Admin: 04/11/17 05:58 Dose: 300 mg Glycopyrrolate (Robinul) Confirm Administered Dose 1 mg .ROUTE .STK-MED ONE Stop: 04/11/17 07:16 Hydromorphone HCl (Dilaudid) 1 mg IVPUSH Q2H PRN PRN Reason: Pain Stop: 04/12/17 10:21 Tranexamic Acid 930 mg/ Sodium (Chloride) 59.3 mls @ 237.2 mls/hr IV Q3H [facility] Stop: 04/11/17 10:59 Last Admin: 04/11/17 10:31 Dose: 237.2 mls/hr Ketamine HCl 100 mg/ Sodium (Chloride) 100 mls @ 15 mls/hr IV ASDIRECTED [facility] Lactated Ringer's (Ringers, Lactated) 1,000 mls @ 100 mls/hr IV ASDIRECTED [facility] Last Admin: 04/11/17 06:18 Dose: 100 mls/hr Cefazolin Sodium 2 gm/ Sodium (Chloride) 50 mls @ 100 mls/hr IV ONETIME ONE Stop: 04/11/17 07:44 Last Admin: 04/11/17 07:15 Dose: 100 mls/hr Vancomycin HCl 1 gm/ Sodium (Chloride) 250 mls @ 250 mls/hr IV ONETIME ONE Stop: 04/11/17 08:59 Last Admin: 04/11/17 08:05 Dose: 250 mls/hr Acetaminophen 1,000 mg/ Premix 100 mls @ 400 mls/hr IV NOW ONE Stop: 04/11/17 10:54 Last Admin: 04/11/17 10:44 Dose: 400 mls/hr Cefazolin Sodium 2 gm/ Sodium (Chloride) 50 mls @ 100 mls/hr IV Q8H [facility] Stop: 04/12/17 02:59 Last Admin: 04/11/17 12:35 Dose: Not Given Cefazolin Sodium 2 gm/ Sodium (Chloride) 50 mls @ 100 mls/hr IV Q8H [facility] Stop: 04/12/17 06:59 Last Admin: 04/12/17 05:30 Dose: 100 mls/hr Ketamine HCl (Ketalar) 26 mg IV ASDIRECTED [facility] Neostigmine Methylsulfate (Neostigmine) Confirm Administered Dose 5 mg .ROUTE .STK-MED ONE Stop: 04/11/17 07:16 Ondansetron HCl (Zofran) Confirm Administered Dose 4 mg .ROUTE .STK-MED ONE Stop: 04/11/17 07:16 Oxycodone HCl (Oxycodone) 10 mg PO Q4H PRN PRN Reason: Pain Stop: 04/12/17 10:21 Oxycodone HCl (Oxycodone) 10 mg PO Q4H PRN PRN Reason: Pain Stop: 04/12/17 10:21 Last Admin: 04/12/17 06:39 Dose: 10 mg Oxycodone/Acetaminophen (Percocet 325-5 Mg) 2 tab PO Q4H PRN PRN Reason: Pain Povidone Iodine (Betadine 10% Soln) Confirm Administered Dose 1 ml .ROUTE .STK- MED ONE Stop: 04/11/17 06:50 Last Admin: 04/11/17 08:31 Dose: 1 ml Propofol (Diprivan 20 Ml) Confirm Administered Dose 200 mg .ROUTE .STK-MED ONE Stop: 04/11/17 07:16 Propofol (Diprivan 20 Ml) Confirm Administered Dose 400 mg .ROUTE .STK-MED ONE Stop: 04/11/17 07:22 Propofol (Diprivan 20 Ml) Confirm Administered Dose 200 mg .ROUTE .STK-MED ONE Stop: 04/11/17 08:35 Propofol (Diprivan 20 Ml) Confirm Administered Dose 200 mg .ROUTE .STK-MED ONE Stop: 04/11/17 09:09 Rocuronium [place] (Zemuron) Confirm Administered Dose 50 mg .ROUTE .STK-MED ONE Stop: 04/11/17 07:16 Succinylcholine Chlor[place] (Quelicin) Confirm Administered Dose 200 mg .ROUTE .STK -MED ONE Stop: 04/11/17 07:16 Thrombin (Thrombin-Jmi) Confirm Administered Dose 15,000 unit .ROUTE .STK-MED ONE Stop: 04/11/17 06:50 Last Admin: 04/11/17 08:32 Dose: 15,000 unit Vancomycin HCl (Vancomycin) Confirm Administered Dose 1 gm .ROUTE .STK-MED ONE Stop: 04/11/17 07:36 Last Admin: 04/11/17 08:32 Dose: 1 gm - Exam Quality Assessment: No: Supplemental Oxygen General: Alert, Oriented, Cooperative, No Acute Distress Neck: Supple Lungs: Normal Respiratory Effort GI/Abdominal Exam: No Distention Extremities: No Pedal Edema Psy/Mental Status: Alert, Normal Affect - Problem List Review Problem List Initiated/Reviewed/Updated: Yes - My Orders Last 24 Hours: My Active Orders 04/11/17 21:00 Trospium [Sanctura] 20 mg PO BID 04/12/17 07:30 Pantoprazole [ProTONIX] 40 mg PO ACBREAKFAST 04/12/17 09:00 Lactobacillus Rhamnosus GG [Culturelle] 1 cap PO DAILY - Plan Plan:: ASSESSMENT AND PLAN - Spinal stenosis status postlumbar TLIF L4-L5 - doing quite well after surgery. Minimal pain and ambulating effectively. -Postop cares per surgical team including physical therapy Overactive bladder syndrome - symptoms have been stable, no issues after catheter removed. -Continue trospium Maintenance issues - - DVT prophylaxis - per orthopedics team - GI prophylaxis - PPI - Nutrition - advance diet as tolerated Disposition - anticipate discharge to home after the hospital stay Tato Morales M.D.
--- NOTE | 2017-04-12 13:35 | OR ---
DATE OF PROCEDURE: 04/11/2017 PREOPERATIVE DIAGNOSES: 1. Lumbar spondylolisthesis, L4-L5. 2. Lumbar stenosis, L4-L5. 3. Lumbar foraminal stenosis, L4-L5. 4. Lumbar radiculopathy, L4-L5. PROCEDURE: 1. Transforaminal lumbar interbody fusion and posterior lateral fusion, L4-L5. 2. Decompression, required an additional laminectomy L4-L5. 3. Interbody device placement at L4-L5. 4. Segmental instrumentation, L4-L5. 5. Use of operating microscope. 6. Allograft obtained from laminectomy, used in posterior lateral fusion, as well as interbody fusion. ANESTHESIA: General endotracheal intubation. FLUID: Lactated Ringer solution. ESTIMATED BLOOD LOSS: 300 mL. COMPLICATIONS: None. SPECIMEN: None. DISCHARGE DISPOSITION: Stable to PACU. HISTORY/INDICATIONS FOR THE PROCEDURE: The patient was seen preoperatively by myself in the clinic. We had previously done a knee replacement on her. She had failed nonoperative treatment. Preoperative imaging confirmed the above-mentioned diagnosis. Risks and benefits of the procedure were explained to the patient. Informed consent was obtained. DETAILS OF THE PROCEDURE: The patient was seen preoperatively by myself and the anesthesia staff in the preop holding area, where the operative site was marked. She was brought to the operative suite by the anesthesia staff, where general anesthesia was administered and neuromonitoring leads were placed. A sterile Rivero catheter was placed. The fluoroscopy unit was draped in a sterile manner. The microscope was draped in a sterile manner. She was then placed in a prone position on a [place] table. All extremities were found to be well padded and bed was then flexed. The back was then prepped and draped in a sterile manner. Time-out was called identifying the correct patient, correct procedure, the correct site, and antibiotics had been begun within the appropriate period of time. Lateral fluoroscopy was used to identify the pedicles of L4 and L5. Midline incision was then made over the spinous processes of L3-L5. Bleeding during the case was controlled with Bovie electrocautery, bipolar electrocautery, and Aquamantys 5.0 unit. Sterile gloves were initially used for retraction. Bovie electrocautery and Baltazar were used for dissection of the spinous processes of L4 and L5, their facets, pars, and transverse processes. I then inserted two 75 mm Versa-Trac blades for retraction. I then removed the soft tissue and prepared for screw placement, placing the screws on the left first and then the right. This was done by clearing all the soft tissue, identifying the pars, and then going at the lateral aspect of the pars at the midpoint of the transverse process. I drilled down the facets and then used a PediGuard for entry, followed by pedicle probe, followed by 2 under tap, followed by pedicle probe, followed by screw placement. I did this on the left and then the right. The screws were 6.5 x 45 with the exception of the right L4 screw, which was 6.5 x 50. I then tested the screws. The lowest screw was at 15, the rest were 18 to 20. These looked good on AP and lateral fluoroscopy. I then focused on the laminectomy for the central stenosis. I then cleared any soft tissue away, then removed the spinous process of L4 in its caudal 3/4 of the lamina and then saved that for autograft later. We then removed the ligamentum flavum. Unfortunately, the dura was attached to the ligamentum flavum in one area and only the arachnoid was covering the cerebrospinal fluid. There was a small poke hole of an incidental durotomy. I then used the operating microscope, after applying some FloSeal to control any small bleeders, and I used a 6-0 Mccaskill-Ryan suture to close the durotomy used in an interrupted manner. Under the microscope, I then performed two Valsalva's to ensure that no leak was present. I then did a full facetectomy on the right at L4-L5 because primarily the symptoms were on the right, and then just anterior to the L5 pedicle, I used bipolars to identify the disk space. I then used a nerve root retractor and cleared the disk space. Using the bipolars, I applied a small amount of FloSeal, as well as thrombin-soaked Gelfoam and a cottonoid at times. I then used a deep knife to go through the posterior anulus on the right at L4-L5 and then removed the anulus using a pituitary. I then used sequential christian from 7-10 and then straight upgoing and downgoing curettes, pituitaries, and straight and upgoing pituitaries to remove as much as disk as possible and remove any cartilage from the endplates at L4-L5. I then inserted a bone tamp and then, using Signify allograft, mixed that with the autograft, which had been run through the Rhett bone mill and then placed that anteriorly. I then placed a Rise implant, which was 10 x 22, 8-14, 10 degree and expanded this under direct fluoroscopic visualization. I do believe that it subsided slightly into the L5 endplate. This was in good position on AP and lateral views. I then packed some more bone and then used Kinex allograft and packed that posteriorly to the implant. We then copiously irrigated with 3 L of Betadine infused irrigation. I then decorticated the transverse processes on the right, inserted more allograft, and then placed my rods and then set screws and torqued them to specs and then took final films. We then applied DuraGen to the posterior dura and then covered this with a 2 mm layer of DuraSeal and performed another Valsalva, which was negative. We then placed half a gram of vancomycin under the fascia, followed by Gelfoam powder, followed by closure with 1 STRATAFIX and another liter of Betadine infused irrigation and then another 0.5 gram of vancomycin and then #2 STRATAFIX and 3-0 STRATAFIX, and then glue and a sterile dressing. Neuromonitoring leads were normal throughout the case. The patient was then flipped back onto her hospital bed and taken to the PACU in stable condition. Rivera Ann DO /[id number]
[2017-04-12] MEDS: Sennosides 8.6 MG Tab PO PRN (21:04)
[2017-04-13] MEDS: Acetaminophen/oxyCODONE 325-5 MG Tab PO PRN ×2 (02:19→08:02)
--- NOTE | 2017-04-13 07:35 | PCM.DCSUM1 ---
Discharge Summary - Hospital Course Brief History: Lumbar stenosis, spondylolisthesis, radiculopathy L4-5 - Discharge Data Discharge Date: 04/13/17 Discharge Disposition: Home, Self-Care 01 Condition: Good - Discharge Diagnosis/Problem(s) (1) Spinal stenosis of lumbar region SNOMED Code(s): 22495578 ICD Code: M48.06 - SPINAL STENOSIS, LUMBAR REGION * DO NOT USE * Status: Chronic Current Visit: No Qualifiers: Neurogenic claudication status: without neurogenic claudication Qualified Code(s): M48.061 - Spinal stenosis, lumbar region without neurogenic claudication (2) Spondylolisthesis, lumbar region SNOMED Code(s): 883692096344906 ICD Code: M43.16 - SPONDYLOLISTHESIS, LUMBAR REGION Status: Chronic Current Visit: No - Patient Summary/Data Operative Procedure(s) Performed: TLIF L4-5 Complications: NONE Consults: Consultations 04/11/17 10:21 OT Evaluation and Treatment [CONS] Routine Please Evaluate and Treat. OT Reason for Consult: Strengthening This query below is only for informational purposes and is not editable. PT Evaluation and Treatment [CONS] Routine Please Evaluate and Treat. PT Reason for Consult: Strengthening This query below is only for informational purposes and is not editable. - Patient Instructions Diet: Usual Diet as Tolerated Activity: As Tolerated, Full Weight Bearing, No Lifting Over 10 Pounds Driving: Do Not Drive Showering/Bathing: May Shower Wound/Incision Care: Keep Operative Site/Wound Site Clean and Dry, Change Dressing Daily Notify Provider of: Fever, Increased Pain, Swelling and Redness, Drainage, Nausea and/or Vomiting - Discharge Plan Prescriptions/Med Rec: Acetaminophen/oxyCODONE [Percocet 325-5 MG] 1 tab PO Q6HR PRN #120 tablet PRN Reason: Pain Home Medications: Home Meds Multivitamin [Multi-Vitamin Daily] 1 each PO BEDTIME 04/22/13 [History] Omeprazole 40 mg PO DAILY 04/22/13 [History] Calcium Citrate/Vitamin D3 [Calcium Citrate + D] 1 tab PO BEDTIME 09/29/15 [ History] Trospium [Sanctura] 20 mg PO BID 09/29/15 [History] Ammonium Lactate [Lac-Hydrin 12% Crm] 1 applic TOP BID 02/14/16 [History] Cyanocobalamin (Vitamin B-12) [Vitamin B-12] 5,000 mcg SL DAILY 02/14/16 [ History] Lactobacillus Acidophilus [Probiotic Acidophilus] 1 each PO DAILY 02/14/16 [ History] Vitamin E 400 unit PO BEDTIME 02/14/16 [History] Bismuth Subsalicylate [Bismatrol] 2 tab PO QID PRN 11/10/16 [History] Gluc 2KCl/Chondr/Rosina Hy/Hy Ac [Glucosamine & Chondroitin Cap] 1 each PO DAILY 11/10/16 [History] Loperamide HCl [Anti-Diarrheal] 2 mg PO QID 11/10/16 [History] Acetaminophen [Acetaminophen Extra Strength] 1,000 mg PO TID 03/27/17 [History] Magnesium Oxide [Magnesium] 1,000 mg PO DAILY 03/27/17 [History] Acetaminophen/oxyCODONE [Percocet 325-5 MG] 1 tab PO Q6HR PRN #120 tablet [Rx] Patient Handouts: Spinal Fusion, [id number] Referrals: Rivera Ann DO [Physician] - - General Info Functional Status: Reports: Pain Controlled - Review of Systems General: Reports: No Symptoms HEENT: Reports: No Symptoms Pulmonary: Reports: No Symptoms Cardiovascular: Reports: No Symptoms Gastrointestinal: Reports: No Symptoms Genitourinary: Reports: No Symptoms Musculoskeletal: Reports: Back Pain Skin: Reports: No Symptoms Neurological: Reports: No Symptoms Psychiatric: Reports: No Symptoms - Patient Data Vitals - Most Recent: Last Vital Signs Temp 98.9 F 04/13/17 02:29 Pulse 92 04/13/17 02:29 Resp 18 04/13/17 02:29 BP 145/54 H 04/13/17 02:29 Pulse Ox 95 04/13/17 02:29 Weight - Most Recent: 206 lb 3.2 oz I&O - Last 24 hours: Intake & Output 04/12/17 04/13/17 04/13/17 22:59 06:59 14:59 Intake Total 340 750 Output Total 900 1000 Balance -560 -250 Med Orders - Current: Current Medications Al Hydroxide/Mg Hydroxide (Mag-Al Plus) 30 ml PO Q4H PRN PRN Reason: Indigestion Diazepam (Valium.) 5 mg PO Q6H PRN PRN Reason: Spasms Lactobacillus Rhamnosus (Culturelle) 1 cap PO DAILY [facility] Last Admin: 04/12/17 09:28 Dose: 1 cap Magnesium Hydroxide (Milk Of Magnesia) 30 ml PO BID PRN PRN Reason: Constipation Naloxone HCl (Narcan) 0.2 mg IVPUSH ONETIME PRN PRN Reason: Oversedation Verify Scop Patch 0 each TOP DAILY [facility] Last Admin: 04/12/17 09:30 Dose: 1 each Ondansetron HCl (Zofran) 8 mg IVPUSH Q4H PRN PRN Reason: Nausea/Vomiting Oxycodone/Acetaminophen (Percocet 325-5 Mg) 2 tab PO Q4H PRN PRN Reason: Pain Last Admin: 04/13/17 02:19 Dose: 2 tab Pantoprazole Sodium (Protonix) 40 mg PO ACBREAKFAST [facility] Last Admin: 04/12/17 06:39 Dose: 40 mg Scopolamine (Transderm-Scop) 1.5 mg TOP Q72H [facility] Stop: 04/14/17 02:00 Last Admin: 04/11/17 05:58 Dose: 1.5 mg Senna (Senna) 8.6 mg PO BID PRN PRN Reason: Constipation Last Admin: 04/12/17 21:04 Dose: 8.6 mg Trospium (Sanctura) 20 mg PO BID [facility] Last Admin: 04/12/17 21:04 Dose: 20 mg Zolpidem Tartrate (Ambien) 5 mg PO BEDTIME PRN PRN Reason: Sleep Discontinued Medications Ropivacaine 49.25 ml/Ketorolac Tromethamine 30 mg/Epinephrine HCl 0.5 mg/ Clonidine HCl 80 mcg/ Sodium Chloride 48.45 ml 0 ml INJECT ONETIME ONE Stop: 04/11/17 07:46 Last Admin: 04/11/17 08:05 Dose: 50 ml Dexamethasone (Dexamethasone) Confirm Administered Dose 4 mg .ROUTE .STK-MED ONE Stop: 04/11/17 07:16 Diazepam (Valium) 5 mg IVPUSH Q6H PRN PRN Reason: Spasms Fentanyl (Sublimaze) Confirm Administered Dose 100 mcg .ROUTE .STK-MED ONE Stop: 04/11/17 08:52 Fentanyl (Sublimaze) Confirm Administered Dose 100 mcg .ROUTE .STK-MED ONE Stop: 04/11/17 09:21 Fentanyl Citrate (Fentanyl) Confirm Administered Dose 500 mcg .ROUTE .STK-MED ONE Stop: 04/11/17 07:16 Gabapentin (Neurontin) 300 mg PO ONETIME ONE Stop: 04/11/17 05:46 Last Admin: 04/11/17 05:58 Dose: 300 mg Glycopyrrolate (Robinul) Confirm Administered Dose 1 mg .ROUTE .STK-MED ONE Stop: 04/11/17 07:16 Hydromorphone HCl (Dilaudid) 1 mg IVPUSH Q2H PRN PRN Reason: Pain Stop: 04/12/17 10:21 Tranexamic Acid 930 mg/ Sodium (Chloride) 59.3 mls @ 237.2 mls/hr IV Q3H [facility] Stop: 04/11/17 10:59 Last Admin: 04/11/17 10:31 Dose: 237.2 mls/hr Ketamine HCl 100 mg/ Sodium (Chloride) 100 mls @ 15 mls/hr IV ASDIRECTED [facility] Lactated Ringer's (Ringers, Lactated) 1,000 mls @ 100 mls/hr IV ASDIRECTED [facility] Last Admin: 04/11/17 06:18 Dose: 100 mls/hr Cefazolin Sodium 2 gm/ Sodium (Chloride) 50 mls @ 100 mls/hr IV ONETIME ONE Stop: 04/11/17 07:44 Last Admin: 04/11/17 07:15 Dose: 100 mls/hr Vancomycin HCl 1 gm/ Sodium (Chloride) 250 mls @ 250 mls/hr IV ONETIME ONE Stop: 04/11/17 08:59 Last Admin: 04/11/17 08:05 Dose: 250 mls/hr Acetaminophen 1,000 mg/ Premix 100 mls @ 400 mls/hr IV NOW ONE Stop: 04/11/17 10:54 Last Admin: 04/11/17 10:44 Dose: 400 mls/hr Cefazolin Sodium 2 gm/ Sodium (Chloride) 50 mls @ 100 mls/hr IV Q8H [facility] Stop: 04/12/17 02:59 Last Admin: 04/11/17 12:35 Dose: Not Given Cefazolin Sodium 2 gm/ Sodium (Chloride) 50 mls @ 100 mls/hr IV Q8H [facility] Stop: 04/12/17 06:59 Last Admin: 04/12/17 05:30 Dose: 100 mls/hr Ketamine HCl (Ketalar) 26 mg IV ASDIRECTED [facility] Neostigmine Methylsulfate (Neostigmine) Confirm Administered Dose 5 mg .ROUTE .STK-MED ONE Stop: 04/11/17 07:16 Ondansetron HCl (Zofran) Confirm Administered Dose 4 mg .ROUTE .STK-MED ONE Stop: 04/11/17 07:16 Oxycodone HCl (Oxycodone) 10 mg PO Q4H PRN PRN Reason: Pain Stop: 04/12/17 10:21 Oxycodone HCl (Oxycodone) 10 mg PO Q4H PRN PRN Reason: Pain Stop: 04/12/17 10:21 Last Admin: 04/12/17 06:39 Dose: 10 mg Oxycodone/Acetaminophen (Percocet 325-5 Mg) 2 tab PO Q4H PRN PRN Reason: Pain Povidone Iodine (Betadine 10% Soln) Confirm Administered Dose 1 ml .ROUTE .STK- MED ONE Stop: 04/11/17 06:50 Last Admin: 04/11/17 08:31 Dose: 1 ml Propofol (Diprivan 20 Ml) Confirm Administered Dose 200 mg .ROUTE .STK-MED ONE Stop: 04/11/17 07:16 Propofol (Diprivan 20 Ml) Confirm Administered Dose 400 mg .ROUTE .STK-MED ONE Stop: 04/11/17 07:22 Propofol (Diprivan 20 Ml) Confirm Administered Dose 200 mg .ROUTE .STK-MED ONE Stop: 04/11/17 08:35 Propofol (Diprivan 20 Ml) Confirm Administered Dose 200 mg .ROUTE .STK-MED ONE Stop: 04/11/17 09:09 Rocuronium [place] (Zemuron) Confirm Administered Dose 50 mg .ROUTE .STK-MED ONE Stop: 04/11/17 07:16 Succinylcholine Chloride (Quelicin) Confirm Administered Dose 200 mg .ROUTE .STK -MED ONE Stop: 04/11/17 07:16 Thrombin (Thrombin-Jmi) Confirm Administered Dose 15,000 unit .ROUTE .STK-MED ONE Stop: 04/11/17 06:50 Last Admin: 04/11/17 08:32 Dose: 15,000 unit Vancomycin HCl (Vancomycin) Confirm Administered Dose 1 gm .ROUTE .STK-MED ONE Stop: 04/11/17 07:36 Last Admin: 04/11/17 08:32 Dose: 1 gm - Exam General: Reports: Alert, Oriented HEENT: Reports: Pupils Equal, Pupils Reactive, EOMI, Mucous Membr. Moist/[place] Neck: Reports: Supple Lungs: Reports: Normal Respiratory Effort Extremities: Normal Inspection, Normal Range of Motion, Non-Tender, No Pedal Edema, Normal Capillary Refill Skin: Reports: Warm, Dry, Intact Wound/Incisions: Reports: Healing Well, Dressing Dry and Intact, No Drainage Neurological: Reports: No New Focal Deficit Psy/Mental Status: Reports: Alert, Normal Affect, Normal Mood Discharge Operative/Procedures - Procedures Performed Operations: tlif L4-5 Operations/Procedure Comment: the patient was admitted on 04/11/2017 for transforaminal lumbar interbody fusion at L4-5. She was kept postoperatively for pain control, physical therapy , and occupational therapy. She did extremely well after surgery and was compliant with therapy. She achieved all of her goals. The Rivero was removed on the night of surgery. The patient had a brief headache for 1 hour on postoperative day one which resolved and did not recur. She was discharged home on postoperative day 2 in good condition to home. We'll see her back on May 10 for follow-up. *Q Meaningful Use (DIS) - VTE *Q VTE Criteria *Q: - Stroke *Q Stroke Criteria *Q: - AMI *Q AMI Criteria *Q:
[2017-04-13] MEDS: Lactobacillus Rhamnosus GG (Probiotic) Cap PO SCH (08:02)
[2017-04-13] MEDS: Trospium 20 MG Tab PO SCH (08:03)
[2017-04-13] MEDS: Pantoprazole 40 MG Tab.CR PO SCH (08:03)
[2017-04-13] MEDS: VERIFY SCOP PATCH TOP SCH (08:03)
[2017-04-13 08:09] VITALS: BP 101/80
[2017-04-13] MEDS: Sennosides 8.6 MG Tab PO PRN (10:12)
== END 2017-04-13 12:40 | disposition home or self-care (01) | DRG 460 ==
LOC: JP.SDS 08:37 → JP.SDSSCHI 04-11 05:22 → JP.SDS 04-11 05:22 → EDSTATUS 04-11 07:30 → JP.MS 04-11 10:20
PROVIDERS: ADMIT Orthopaedic Surgery; ATTEND Orthopaedic Surgery
PROC: 0SG00AJ Fusion of Lumbar Vertebral Joint with Interbody Fusion Device, Posterior Approach, Anterior Column, Open Approach (ICD-10-PCS; principal; 2017-04-11)
PROC: 0SB20ZZ Excision of Lumbar Vertebral Disc, Open Approach (ICD-10-PCS; 2017-04-11)
DX: M48.062 Spinal stenosis, lumbar region with neurogenic claudication (principal); M43.16 Spondylolisthesis, lumbar region; M54.16 Radiculopathy, lumbar region; M17.0 Bilateral primary osteoarthritis of knee; Z96.652 Presence of left artificial knee joint; G89.29 Other chronic pain; K21.9 Gastro-esophageal reflux disease without esophagitis; H54.7 Unspecified visual loss; H35.30 Unspecified macular degeneration; Z88.5 Allergy status to narcotic agent; Z91.018 Allergy to other foods; Z88.2 Allergy status to sulfonamides; Z88.7 Allergy status to serum and vaccine; Z88.8 Allergy status to other drugs, medicaments and biological substances; R32 Unspecified urinary incontinence; N32.81 Overactive bladder
CPT/HCPCS: 20930; 22633; 22840; 22853; 36415; 63047; 76001; 81001; 86850; 86900; 86901; 94762; 97110-GP; 97162-GP; 97165-GO; 97530-GP; 97535-GP; 97760-GP; A9270-GY; C1713; J0131; J0171; J0330; J0690; J0735; J1100; J1885; J2405; J2704; J2710; J2795; J3010; J3370; J7030; J7050; J7120

== ENCOUNTER 2017-07-06 07:22 | Day surgery (SDC) | payer MEDICARE, OTHER ==
[2017-07-06] MEDS ORDERED: Lactated Ringers 1,000 ML IV SCH (08:15)
[2017-07-06] MEDS ORDERED: fentaNYL 100 MCG/2 ML SDV ONE (09:13)
[2017-07-06] MEDS ORDERED: Propofol 200 MG/20 ML SDV ONE ×2 (09:14→09:48)
[2017-07-06] MEDS ORDERED: Midazolam 1 MG/ML 2 ML SDV ONE (09:14)
[2017-07-06] MEDS ORDERED: Ampicillin 2 GM in Sodium Chloride 0.9% 100 ML IV ONE (09:30)
[2017-07-06 13:36] VITALS: BP 172/80
--- NOTE | 2017-07-06 17:14 | OR ---
DATE OF PROCEDURE: 07/06/2017 PREOPERATIVE DIAGNOSIS: Chronic diarrhea. POSTOPERATIVE DIAGNOSES: 1. Diverticulosis. 2. Chronic diarrhea. PROCEDURE PERFORMED: Colonoscopy to the cecum with random colon biopsies. ANESTHESIA: IV anesthesia with monitored anesthesia care. INDICATION: This 76-year-old white female is referred for a colonoscopy because of chronic diarrhea. She says it has been several years since her last colonoscopic exam. I counseled her for the procedure including risks and alternatives, and she gave her informed consent to proceed. DESCRIPTION OF PROCEDURE: The patient was placed in the left lateral decubitus position. IV anesthesia was administered by the Anesthesia Service. Time-out was held. A rectal exam was performed, which was unremarkable. The flexible video Olympus colonoscope was introduced through her anus, up her rectum, and out her colon, all the way to the cecum. En route, we saw a few scattered left-sided diverticula. There was no bleeding or inflammation associated with them. Once the cecum was reached, the scope was slowly withdrawn, examining the mucosa throughout. No additional mucosal abnormalities were noted. We obtained multiple biopsies throughout the colon. The scope was retroflexed in the rectum, with the distal rectum appearing unremarkable. The scope was straightened and removed. She tolerated the procedure well. Enoc Flor MD /[id number]
== END 2017-07-06 12:15 | disposition home or self-care (01) ==
LOC: JP.SDS 07:22
PROVIDERS: ATTEND Surgery
DX: K52.831 Collagenous colitis (principal); K21.9 Gastro-esophageal reflux disease without esophagitis
CPT/HCPCS: 45380; 88305; J0290; J2250; J2704; J3010; J7030; J7120

== ENCOUNTER 2019-03-24 06:21 | Day surgery (SDC) | payer MEDICARE, OTHER ==
[2019-03-24] MEDS ORDERED: fentaNYL 100 MCG/2 ML SDV ONE (07:06)
[2019-03-24] MEDS ORDERED: Propofol 200 MG/20 ML SDV ONE (07:06)
[2019-03-24] MEDS ORDERED: Midazolam 1 MG/ML 2 ML SDV ONE (07:06)
[2019-03-24] MEDS ORDERED: Dextrose 5%-Lactated Ringers 1,000 ML IV SCH (07:30)
[2019-03-24] MEDS ORDERED: Glycopyrrolate 0.2 MG/ML 2 ML SDV IVPUSH ONE (07:45)
[2019-03-24 09:17] VITALS: BP 135/71; PULSE 71
--- NOTE | 2019-03-26 15:15 | OR ---
DATE OF PROCEDURE: 03/24/2019 SURGEON: Jeromy Ann MD PREOPERATIVE DIAGNOSIS: History of Schultz esophagus. POSTOPERATIVE DIAGNOSES: 1. History of Schultz esophagus with small hiatal hernia. 2. Mild antral gastritis. OPERATIVE PROCEDURES: Esophagogastroduodenoscopy with, 1. Biopsy of esophagogastric junction for histologic evaluation. 2. Biopsies of antrum for CLOtest. ANESTHESIA: IV sedation. INDICATION FOR PROCEDURE: This 78-year-old female presenting with followup indications for her Schultz esophagus. She is to undergo an upper endoscopy with biopsies. Potential risks of the procedure including bleeding and perforation were discussed, and the patient wishes to proceed. She presently is on omeprazole 40 mg a day and with that, she has good symptom control. DETAILS OF PROCEDURE: The patient was taken to the operating room and placed in a left lateral decubitus position. IV sedation was administered, after which the upper GI endoscope was passed orally through the length of the esophagus, into the stomach with retroflexion view of the fundus, and thereafter through the pyloric channel and into the proximal duodenum. Findings included normal hypopharynx, larynx, upper esophageal sphincter, and esophageal body. At the EG junction, a small hiatal hernia was present. There was minimal inflammation at the EG junction. There was some upward extension of the gastroesophageal junction mucosal line above the upper gastric folds consistent with known Schultz esophagus stricturing or other signs of neoplastic change. Within the stomach, there was some patchy redness in the antrum, otherwise the pyloric channel and duodenum, the junction of 3rd and 4th portions, were unremarkable. At this point, biopsies were obtained from the antrum and sent for CLOtest for H pylori. Multiple circumferential biopsies were then placed in the area around the esophagogastric junction. Minimal bleeding from the biopsy sites was seen, and the procedure then concluded. The patient was taken to the recovery room in satisfactory condition. We will continue the present medical management and repeat endoscopy should be undertaken in 2 years unless there is a progression of dysplasia within her Schultz esophagus. Jeromy Ann MD /[id number]
== END 2019-03-24 09:20 | disposition home or self-care (01) ==
LOC: JP.SDS 06:21
PROVIDERS: ATTEND Surgery
DX: K22.70 Barrett's esophagus without dysplasia (principal); K44.9 Diaphragmatic hernia without obstruction or gangrene; K29.50 Unspecified chronic gastritis without bleeding
CPT/HCPCS: 43239; 87081; 88305; J2250; J2704; J3010; J3490; J7042

== ENCOUNTER 2019-05-09 11:59 | Emergency (ER) | payer MEDICARE, OTHER ==
[2019-05-09 12:43] VITALS: BP 157/76; PULSE 77
[2019-05-09] MEDS ORDERED: Bacitracin Oint 1 GM U/D Packet TOP ONE (12:48)
--- NOTE | 2019-05-09 12:53 | EDM.PDOC ---
ED HPI GENERAL MEDICAL PROBLEM - General Chief Complaint: Head Injury Stated Complaint: FALL, CUT ABOVE RIGHT EYE Time Seen by Provider: 05/09/19 12:41 Source of Information: Reports: Patient, RN Notes Reviewed History Limitations: Reports: No Limitations - History of Present Illness INITIAL COMMENTS - FREE TEXT/NARRATIVE: 78-year-old female presents emergency department today following a fall, she was carrying some packages getting into her car when she slipped on the ice fell down and hit her right side of her face on a car tire. She did not lose consciousness she does have a laceration in her eyelid on the right side there is a bruise on the right cheek however she had no loss of consciousness is not complaining of any pain no other injuries no neck pain. Does have an anaphylactic allergy to tetanus toxoid - Related Data Allergies Allergy/AdvReac Type Severity Reaction Status Date / Time tetanus toxoid, adsorbed Allergy Severe Swelling Verified 05/09/19 12:17 Sulfa (Sulfonamide Allergy Intermediate Hives Verified 05/09/19 12:17 Antibiotics) diclofenac [From Voltaren] Allergy Mild Indigestion Verified 05/09/19 12:17 prednisone Allergy Mild Rash Verified 05/09/19 12:17 milk Allergy unknown Verified 05/09/19 12:17 poison keyona extract Allergy Rash Verified 05/09/19 12:17 [Poison [place] Extract] codeine AdvReac Intermediate Nausea and Verified 05/09/19 12:17 Vomiting hydromorphone [From Dilaudid] AdvReac Intermediate Nausea and Verified 05/09/19 12:17 Vomiting naproxen AdvReac Intermediate Stomach Verified 05/09/19 12:17 Upset ibuprofen AdvReac Mild Stomach Verified 05/09/19 12:17 Upset kiwi Allergy Swelling Uncoded 03/24/19 06:50 strawberries Allergy Hives Uncoded 03/24/19 06:50 Home Meds: Home Meds Multivitamin [Multi-Vitamin Daily] 1 each PO BEDTIME 04/22/13 [History] Omeprazole 40 mg PO DAILY 04/22/13 [History] Cyanocobalamin (Vitamin B-12) [Vitamin B-12] 5,000 mcg SL DAILY 02/14/16 [ History] Vitamin E 400 unit PO BEDTIME 02/14/16 [History] Glucosam/Chondr/Collagn/Hyalur [Glucosamine & Chondroitin Cap] 1 each PO DAILY 11/10/16 [History] Loperamide HCl [Anti-Diarrheal] 2 mg PO QID 11/10/16 [History] Acetaminophen [Acetaminophen Extra Strength] 1,000 mg PO TID PRN 03/27/17 [ History] Fesoterodine Fumarate [Toviaz] 8 mg PO DAILY 07/04/17 [History] Furosemide [Lasix] 20 mg PO DAILY PRN 07/04/17 [History] Lutein/Zeaxanthin [Lutein-Zeaxanthin 25-5 mg Sfgl] 5 mg PO DAILY 07/04/17 [ History] Melatonin/Pyridoxine HCl (B6) [Melatonin 5 mg Tablet] 9 mg PO BEDTIME 07/04/17 [ History] Folic Acid 2 mg PO DAILY 03/20/19 [History] [place]-3/DHA/Epa/Fish Oil [[place] 3 500 Softgel] 1,000 mg PO DAILY 03/20/19 [ History] Past Medical History HEENT History: Reports: Allergic Rhinitis, Impaired Vision, Macular Degeneration , Sinusitis Other HEENT History: wears glasses, early stage of macular degeneration Gastrointestinal History: Reports: Cholelithiasis, Chronic Constipation, Chronic Diarrhea, Gastritis, GERD, Hemorrhoids, Hiatal Hernia, Other (See Below) Other Gastrointestinal History: Barretts esophagus Genitourinary History: Reports: Urinary Incontinence 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 weakness Neurological History: Reports: Migraines Endocrine/Metabolic History: Reports: Hypothyroidism, Obesity/BMI 30+ Other Endocrine/Metabolic History: as child thyroid surgery - Infectious Disease History Infectious Disease History: Reports: Chicken Pox, Measles, Mumps - Past Surgical History HEENT Surgical History: Reports: Adenoidectomy, Tonsillectomy, Other (See Below) Other HEENT Surgeries/Procedures: mastoid surgery in left ear at age 4, sinus surgery GI Surgical History: Reports: Appendectomy, Colonoscopy, EGD Female Surgical History: Reports: Other (See Below) Other Female Surgeries/Procedures: bladder suspension Endocrine Surgical History: Reports: None Neurological Surgical History: Reports: Other (See Below) Other Neurological Surgeries/Procedures: Tlif L4 L5 Musculoskeletal Surgical History: Reports: Knee Replacement Other Musculoskeletal Surgeries/Procedures:: left TKA Dermatological Surgical History: Reports: None, Other (See Below) Social & Family History - Family History Family Medical History: Noncontributory - Tobacco Use Smoking Status *Q: Never Smoker Second Hand Smoke Exposure: No - Caffeine Use Caffeine Use: Reports: Coffee - Recreational Drug Use Recreational Drug Use: No ED ROS GENERAL - Review of Systems Review Of Systems: See Below Constitutional: Reports: No Symptoms HEENT: Reports: No Symptoms Respiratory: Reports: No Symptoms Cardiovascular: Reports: No Symptoms GI/Abdominal: Reports: No Symptoms Musculoskeletal: Reports: No Symptoms Skin: Reports: Wound Neurological: Reports: No Symptoms ED EXAM, HEAD INJURY - Physical Exam Exam: See Below Text/Narrative:: 78-year-old female alert oriented x3, airways open patent and clear, GCS 15 lungs are clear to auscultation bilaterally and cardiovascular demonstrates regular rate and rhythm 2. I do appreciate approximately a 2 cm laceration in the eyelid on the right eye, extraocular eye movements are intact there is no tenderness to palpation around the orbits she does have a bruise over the right cheekbone mouth mucosa is moist and pink no erythema or exudate known soft palate tongue is midline uvula is midline I do not appreciate any trauma to the head neck there is no spinal tenderness no paraspinal tenderness full range of motion without difficulty Exam Limited By: No Limitations General Appearance: Alert, WD/WN, No Apparent Distress Nexus Criteria: No: Posterior, Midline Cervical Tenderness, Evidence of Intoxication, Altered Level of Consciousness, Focal Neurological Deficit, Painful Distraction Injuries ED LACERATION/WOUND & IAM PROC - Laceration/Wound Repair Face Lac/wound length in cm: 2 Appearance: Subcutaneous, Irregular Distal NVT: Neuro & Vascular Intact, No Tendon Injury Anesthetic Type: Local Local Anesthesia - Lidocaine (Xylocaine): 1% Plain Local Anesthetic Volume: 1cc Skin Prep: Saline Saline irrigation (cc's): 60 Exploration/Debridement/Repair: Wound Explored, In a Bloodless Field, Explored to Base Closed with: Sutures Suture Size: 6-0 # of Sutures: 4 Suture Type: Interrupted, Simple Sterile Dressing Applied: Nurse Tetanus Status Addressed: Other (Allergy) Course - Vital Signs Last Recorded V/S: Last Vital Signs Temp 95.8 F 05/09/19 12:12 Pulse 77 05/09/19 12:42 Resp 18 05/09/19 12:12 BP 157/76 H 05/09/19 12:42 Pulse Ox 99 05/09/19 12:12 - Orders/Labs/Meds Meds: Medications Discontinued Medications Generic Name Dose Route Start Last Admin Trade Name Enrique PRN Reason Stop Dose Admin Bacitracin 1 dose 05/09/19 12:48 Bacitracin Oint 1 Gm TOP 05/09/19 12:49 ONETIME ONE Lidocaine HCl 5 ml 05/09/19 12:48 Xylocaine-Mpf 1% INJECT 05/09/19 12:49 ONETIME ONE Departure - Departure Time of Disposition: 13:21 Disposition: Home, Self-Care 01 Condition: Fair Clinical Impression: Laceration, eyelid, right Qualifiers: Encounter type: initial encounter Qualified Code(s): S01.111A - Laceration without foreign body of right eyelid and periocular area, initial encounter - Discharge Information Instructions: Laceration Care, Adult, [id number] Referrals: Fracisco Hickey MD [Primary Care Provider] - Forms: ED Department Discharge Additional Instructions: Suture removal 3 to 4 days, follow-up with primary care or return to the emergency department for suture removal - Assessment/Plan Plan: Assessment Acuity = acute Site and laterality = 2 cm laceration right eyelid Etiology = secondary to fall Manifestations = none Location of injury = Home Lab values = none Plan Did discuss the possibility of image studies she declined at this time follow wound care instruction sheet suture removal in 3 to 4 days This note was dictated using [employer] recognition software please call with any questions on syntax or grammar.
== END 2019-05-09 13:35 | disposition home or self-care (01) ==
LOC: JP.ED 11:59
DX: S01.111A Laceration without foreign body of right eyelid and periocular area, initial encounter (principal); K21.9 Gastro-esophageal reflux disease without esophagitis; M19.90 Unspecified osteoarthritis, unspecified site; E03.9 Hypothyroidism, unspecified; E66.9 Obesity, unspecified; Z68.30 Body mass index [BMI] 30.0-30.9, adult; Z88.2 Allergy status to sulfonamides; Z88.8 Allergy status to other drugs, medicaments and biological substances; Z91.011 Allergy to milk products; Z88.5 Allergy status to narcotic agent; Z88.7 Allergy status to serum and vaccine; Z91.018 Allergy to other foods; Z91.048 Other nonmedicinal substance allergy status; Z79.899 Other long term (current) drug therapy; W00.0XXA Fall on same level due to ice and snow, initial encounter; W22.8XXA Striking against or struck by other objects, initial encounter
CPT/HCPCS: 12011; 99282; 99283; J2001

== ENCOUNTER 2020-06-16 19:07 | Emergency (ER) | payer MEDICARE, OTHER ==
[2020-06-16 19:48] VITALS: BP 140/85; PULSE 87
--- NOTE | 2020-06-16 20:46 | EDM.PDOC ---
ED HPI GENERAL MEDICAL PROBLEM - General Chief Complaint: Upper Extremity Injury/Pain Stated Complaint: FELL HIT HEAD, ARM , AND KNEE Time Seen by Provider: 06/16/20 20:00 Source of Information: Reports: Patient History Limitations: Reports: No Limitations - History of Present Illness INITIAL COMMENTS - FREE TEXT/NARRATIVE: 79-year-old female who fell earlier tonight striking her right shoulder on the wall. She has significant pain in the right arm, with discomfort with movement of the arm. Mild to moderate nausea. Also small amount of right knee discomfort. Onset: Sudden Duration: Hour(s): (Within the last 2 hours) Location: Reports: Head, Upper Extremity, Right, Lower Extremity, Right Worsens with: Reports: Movement Associated Symptoms: Reports: Other (Mild nausea initially, that is improved) Right Upper Shoulder Pain Score (Numeric/FACES): 10 - Related Data Allergies Allergy/AdvReac Type Severity Reaction Status Date / Time tetanus toxoid, adsorbed Allergy Severe Swelling Verified 06/16/20 19:39 Sulfa (Sulfonamide Allergy Intermediate Hives Verified 06/16/20 19:39 Antibiotics) diclofenac [From Voltaren] Allergy Mild Indigestion Verified 06/16/20 19:39 prednisone Allergy Mild Rash Verified 06/16/20 19:39 milk Allergy unknown Verified 06/16/20 19:39 poison keyona extract Allergy Rash Verified 06/16/20 19:39 [Poison [place] Extract] wool Allergy Hives Verified 06/16/20 19:39 codeine AdvReac Intermediate Nausea and Verified 06/16/20 19:39 Vomiting hydromorphone [From Dilaudid] AdvReac Intermediate Nausea and Verified 06/16/20 19:39 Vomiting naproxen AdvReac Intermediate Stomach Verified 06/16/20 19:39 Upset ibuprofen AdvReac Mild Stomach Verified 06/16/20 19:39 Upset kiwi Allergy Swelling Uncoded 06/16/20 19:39 strawberries Allergy Hives Uncoded 06/16/20 19:39 Home Meds: Home Meds Multivitamin [Multi-Vitamin Daily] 1 each PO BEDTIME 04/22/13 [History] Omeprazole 40 mg PO DAILY 04/22/13 [History] Cyanocobalamin (Vitamin B-12) [Vitamin B-12] 5,000 mcg SL DAILY 02/14/16 [History] Vitamin E 400 unit PO BEDTIME 02/14/16 [History] Glucosam/Chondr/Collagn/Hyalur [Glucosamine & Chondroitin Cap] 1 each PO DAILY 11/10/16 [History] Loperamide HCl [Anti-Diarrheal] 2 mg PO QID 11/10/16 [History] Acetaminophen [Acetaminophen Extra Strength] 1,000 mg PO TID PRN 03/27/17 [History] Fesoterodine Fumarate [Toviaz] 8 mg PO DAILY 07/04/17 [History] Furosemide [Lasix] 20 mg PO DAILY PRN 07/04/17 [History] Lutein/Zeaxanthin [Lutein-Zeaxanthin 25-5 mg Sfgl] 5 mg PO DAILY 07/04/17 [History] Melatonin/Pyridoxine HCl (B6) [Melatonin 5 mg Tablet] 9 mg PO BEDTIME 07/04/17 [History] Folic Acid 2 mg PO DAILY 03/20/19 [History] [place]-3/DHA/Epa/Fish Oil [[place] 3 500 Softgel] 1,000 mg PO DAILY 03/20/19 [History] Past Medical History HEENT History: Reports: Allergic Rhinitis, Impaired Vision, Macular Degeneration, Sinusitis Other HEENT History: wears glasses, early stage of macular degeneration Gastrointestinal History: Reports: Cholelithiasis, Chronic Constipation, Chronic Diarrhea, Gastritis, GERD, Hemorrhoids, Hiatal Hernia, Other (See Below) Other Gastrointestinal History: Barretts esophagus Genitourinary History: Reports: Urinary Incontinence 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 weakness Neurological History: Reports: Migraines, Neuropathy, Peripheral Endocrine/Metabolic History: Reports: Hypothyroidism, Obesity/BMI 30+ Other Endocrine/Metabolic History: as child thyroid surgery - Infectious Disease History Infectious Disease History: Reports: Chicken Pox, Measles, Mumps - Past Surgical History Head Surgeries/Procedures: Reports: None HEENT Surgical History: Reports: Adenoidectomy, Tonsillectomy, Other (See Below) Other HEENT Surgeries/Procedures: mastoid surgery in left ear at age 4, sinus surgery GI Surgical History: Reports: Appendectomy, Colonoscopy, EGD Female Surgical History: Reports: Other (See Below) Other Female Surgeries/Procedures: bladder suspension Endocrine Surgical History: Reports: None Neurological Surgical History: Reports: Other (See Below) Other Neurological Surgeries/Procedures: Tlif L4 L5 Musculoskeletal Surgical History: Reports: Knee Replacement Other Musculoskeletal Surgeries/Procedures:: left TKA Dermatological Surgical History: Reports: None, Other (See Below) Social & Family History - Family History Family Medical History: No Pertinent Family History - Tobacco Use Tobacco Use Status *Q: Never Tobacco User - Caffeine Use Caffeine Use: Reports: Coffee, Tea - Recreational Drug Use Recreational Drug Use: No Review of Systems - Review of Systems Review Of Systems: See Below Constitutional: Denies: Fever Eyes: Denies: Vision Change Respiratory: Denies: Shortness of Breath Cardiovascular: Denies: Chest Pain GI/Abdominal: Reports: Nausea Musculoskeletal: Reports: Other (Right shoulder and right knee pain) Skin: Denies: Bruising Neurological: Denies: Headache Psychiatric: Reports: No Symptoms ED EXAM, GENERAL - Physical Exam Exam: See Below Exam Limited By: No Limitations General Appearance: Alert, No Apparent Distress (Looks uncomfortable but not distressed) Eye Exam: Bilateral Eye: Normal Inspection Head: Atraumatic Neck: Supple Respiratory/Chest: No Respiratory Distress, Lungs Clear Cardiovascular: Regular Rate, Rhythm Extremities: Other (Very tender to palpation around the shoulder, clavicle is nontender and shoulder blade only has mild discomfort. Elbow is nontender. She also has a small amount of tenderness on the medial aspect of the right knee but the patella is nontender) Neurological: Alert, Oriented Psychiatric: Normal Affect, Normal Mood Course - Vital Signs Last Recorded V/S: Last Vital Signs Temp 98.1 F 06/16/20 19:42 Pulse 87 06/16/20 19:42 Resp 16 06/16/20 19:42 BP 140/85 06/16/20 19:42 Pulse Ox 96 06/16/20 19:42 - Orders/Labs/Meds Orders: Active Orders 24 hr Category Date Time Status Consult to Orthopedic Clinic [CONS] Routine Cons 06/16/20 20:50 Active Shoulder Comp Rt [CR] Stat Exams 06/16/20 19:52 Taken DME for Discharge [COMM] Stat Oth 06/16/20 20:08 Ordered - Re-Assessments/Exams Free Text/Narrative Re-Assessment/Exam: 06/16/20 20:49 Right shoulder x-ray was obtained that showed a comminuted fracture of the humeral head with avulsion of the pubic tubercle. She was placed in a shoulder immobilizer and will get a call from the orthopedic department tomorrow regar ding follow-up. She was also given 10 hydrocodone to take 1 every 4-6 hours for extra pain control and will continue with ibuprofen. I did consult Dr. Proctor, he will see her sooner if he believes surgery is necessary. Departure - Departure Time of Disposition: 21:05 Disposition: Home, Self-Care 01 Clinical Impression: Fracture of humeral head, right, closed Qualifiers: Encounter type: initial encounter Qualified Code(s): S42.291A - Other displaced fracture of upper end of right humerus, initial encounter for closed fracture - Discharge Information Instructions: Humerus Fracture Treated With Immobilization, [id number] Referrals: Viviana Bergeron MD [Primary Care Provider] - Forms: ED Department Discharge Care Plan Goals: Keep shoulder immobilizer on at all times except when changing clothes. Ibuprofen will help with pain, and add stronger pain medication as directed if needed. Orthopedics will be calling you tomorrow to discuss follow-up care. It would be very helpful if you can get some help removing and replacing the immobilizer. Return anytime if worsening or concerns. Sepsis Event Note (ED) - Evaluation Sepsis Screening Result: No Definite Risk - Focused Exam Vital Signs: Vital Signs Temp Pulse Resp BP Pulse Ox 06/16/20 19:42 98.1 F 87 16 140/85 96 - My Orders Last 24 Hours: My Active Orders 06/16/20 19:52 Shoulder Comp Rt [CR] Stat 06/16/20 20:08 DME for Discharge [COMM] Stat 06/16/20 20:50 Consult to Orthopedic Clinic [CONS] Routine - Assessment/Plan Last 24 Hours: My Active Orders 06/16/20 19:52 Shoulder Comp Rt [CR] Stat 06/16/20 20:08 DME for Discharge [COMM] Stat 06/16/20 20:50 Consult to Orthopedic Clinic [CONS] Routine
--- NOTE | 2020-06-17 09:14 | CR ---
Shoulder Comp Rt CLINICAL HISTORY: Fall, pain FINDINGS: There is a fracture of the humeral head with displacement of the greater tubercle. There are degenerative changes at the AC joint with periarticular spurring. AC joint laxity would be difficult to exclude. Impression: Fracture proximal humerus Questionable AC joint laxity
== END 2020-06-16 21:18 | disposition home or self-care (01) ==
LOC: JP.ED 19:07
DX: S42.251A Displaced fracture of greater tuberosity of right humerus, initial encounter for closed fracture (principal); G62.9 Polyneuropathy, unspecified; E03.9 Hypothyroidism, unspecified; E66.9 Obesity, unspecified; Z68.33 Body mass index [BMI] 33.0-33.9, adult; Z88.7 Allergy status to serum and vaccine; Z88.2 Allergy status to sulfonamides; Z88.6 Allergy status to analgesic agent; Z88.8 Allergy status to other drugs, medicaments and biological substances; Z91.011 Allergy to milk products; Z88.5 Allergy status to narcotic agent; Z91.018 Allergy to other foods; Z79.899 Other long term (current) drug therapy; W19.XXXA Unspecified fall, initial encounter
CPT/HCPCS: 73030-26-RT; 73030-RT; 99283-25

== ENCOUNTER → 2020-06-21 | Day surgery (SDC) | payer MEDICARE, OTHER ==
[~2020-06-21] MED LIST changes: +Bupivacaine 0.5% 30 ML SDV ONE; +Bupivacaine 0.5% 50 ML MDV ONE; +Dexamethasone 4 MG/ML SDV ONE; +Glycopyrrolate 0.2 MG/ML 5 ML MDV ONE; +Lactated Ringers 1,000 ML IV SCH; +Lactated Ringers 1,000 ML ONE; -Midazolam 1 MG/ML 2 ML SDV ONE; +Neostigmine Methylsulfate 1 MG/ML 5 ML Syringe ONE; +Nozin Nasal Sanitizer NASBOTH ONE; +Ondansetron 4 MG/2 ML SDV ONE; +Rocuronium 50 MG/5 ML Vial ONE; +ceFAZolin 2 GM in Premix Bag 1 BAG IV ONE; -fentaNYL 100 MCG/2 ML SDV ONE; +fentaNYL 250 MCG/5 ML SDV ONE
[2020-06-21 17:52] VITALS: BP 187/75; PULSE 90
--- NOTE | 2020-06-28 15:12 | OR ---
DATE OF PROCEDURE: 06/21/2020 SURGEON: Obed Proctor MD PREOPERATIVE DIAGNOSIS: Displaced right greater tuberosity fracture. POSTOPERATIVE DIAGNOSES: 1. Displaced right humerus greater tuberosity fracture. 2. Rotator cuff tear. PROCEDURE: 1. Open reduction and internal fixation, right greater tuberosity fracture using tension band suture technique. 2. Repair of rotator cuff tear, supraspinatus. ASSIGNMENT DESK ASSISTANT: ALEX Lawton ANESTHESIA: Interscalene block with sedation. INDICATIONS: Alicia is a 79-year-old female who sustained a fall on to her right arm resulting in a displaced fracture of her right greater tuberosity. She now presents for open reduction and internal fixation of the tuberosity and evaluation of the rotator cuff for possible repair. Risks, benefits, potential complications of the procedure were discussed. The assistance of physician food and nutrition services assistant was utilized during the case for adequate retraction and manipulation of the arm and assistance with suture management. DESCRIPTION OF PROCEDURE: After adequate anesthesia was obtained, patient was placed in a modified beach-chair position. Right shoulder and arm were prepped and draped in a sterile fashion. A lateral incision was made from the tip of the acromion distally, carried down to the subcutaneous tissues and hemostasis obtained with electrocautery. The deltoid was split in line with its fibers and a self-retaining retractor was placed. Fracture hematoma was evacuated. Fracture was evaluated. Mildly displaced fracture of the tuberosity was identified with some fragmentation anteriorly as well as a full-thickness tear of the supraspinatus at the level of the fracture anteriorly. Initial attempt was made to fix the fracture with a cannulated screw. Fracture fragment was reduced. Guidepins were drilled and cannulated screws with washer were placed. However, due to the very thin nature of the tuberosity fragment as well as the osteoporotic nature of the bone, adequate fixation could not be obtained using this technique. A decision was made to proceed with tension band suture technique. The FiberWire sutures were then placed through the supraspinatus and infraspinatus tendons. An additional suture was placed through the subscapularis tendon and lesser tuberosity. The edge of the tendon tear of the supraspinatus was also debrided with a rongeur. An additional suture was placed in a locking fashion in the edge of the tear. Incision was then carried distally. 0 Vicryl suture was placed at approximately 5 cm distal to the acromion at the level of the axillary nerve to prevent inadvertent damage to the nerve. Dissection was carried distal to this down to the humeral shaft. Hohmann retractors were placed around the shaft. Two drill holes were then made in the shaft. The sutures from the tuberosity fragment as well as the edge of the tear were then placed through the drill holes in a [id number] fashion and tied over the bone bridge. Additional fixation was obtained with the suture through the lesser tuberosity, which was also crossed in a [id number] fashion and placed into the intact infraspinatus tendon and tied over the fragment. Position of the fracture fragment and tendon repair was inspected both visually and by fluoroscopy. One small fragment of the tuberosity distal to the insertion of the cuff was noted to be mildly displaced, and an additional suture was placed over top of this through the infraspinatus and subscapularis tendons. The arm was moved through internal and external rotation. Fracture fixation was evaluated and found to be stable. Rotator cuff repair was stable. Wound was then irrigated. Deltoid was repaired in a [id number] fashion with 0 Vicryl. Skin was closed with 2-0 Vicryl and a running 3-0 Monocryl. Steri- Strips were applied. Sterile dressing was then placed. The patient tolerated procedure well, there were no complications, taken from the operating room in stable condition. Obed Proctor MD /[id number]
== END ==
LOC: JP.SDS 07:36
PROVIDERS: ATTEND Specialist
DX: S42.251A Displaced fracture of greater tuberosity of right humerus, initial encounter for closed fracture (principal); M75.121 Complete rotator cuff tear or rupture of right shoulder, not specified as traumatic; E03.9 Hypothyroidism, unspecified; I10 Essential (primary) hypertension; E66.9 Obesity, unspecified; Z98.1 Arthrodesis status; Z01.812 Encounter for preprocedural laboratory examination; Z20.822 Contact with and (suspected) exposure to COVID-19; Z68.33 Body mass index [BMI] 33.0-33.9, adult
CPT/HCPCS: 23412; 23630; 36415; 76000; 80053; 85027; 85610; 93005; 93010; A9270; C1713; J0690; J1100; J2405; J2704; J2710; J3010; J3490; J7120; U0002

== ENCOUNTER 2021-04-22 11:44 | Emergency (ER) | payer MEDICARE, OTHER ==
[2021-04-22] MEDS ORDERED: Sodium Chloride 0.9% 10 ML Syringe FLUSH PRN (11:50)
[2021-04-22] MEDS ORDERED: Ondansetron 4 MG/2 ML SDV IVPUSH ONE (11:50)
--- NOTE | 2021-04-22 12:08 | EDM.PDOC ---
ED HPI GENERAL MEDICAL PROBLEM - General Chief Complaint: Headache Stated Complaint: L ARM IN PAIN,TROUBLE BREATHING LAST NIGHT Time Seen by Provider: 04/22/21 11:51 Source of Information: Reports: Patient, Old Records History Limitations: Reports: No Limitations - History of Present Illness INITIAL COMMENTS - FREE TEXT/NARRATIVE: Alicia is an 80-year-old female presenting to the ED for evaluation of left upper extremity pain, nausea and vomiting, shortness of breath, and now a headache. The patient states that she started with left sided upper extremity pain last evening that started at the shoulder and radiated all the way down to her hand. This was accompanied by a little bit of shortness of breath and epigastric discomfort. She did have several episodes of bilious emesis which seemed to improve the epigastric distress. Today the patient also developed a headache and decided to come into the ED for evaluation. She has been vaccinated for COVID-19 receiving the first 2 vaccinations in September 2020 and the booster vaccination about 3 weeks ago. She has not been around anyone that she is aware of that has COVID-19. She currently is experiencing of 5 out of 10 headache, some mild body aches including pain behind the right shoulder that started in the lobby today. She denies any fever or chills. She does state that she had some loose stools yesterday but has not had a bowel movement since. She has not really ate much of the way of food in the last day or so. She does have a history for colitis and was recently treated for this. Headache Pain Score (Numeric/FACES): 8 - Related Data Allergies Allergy/AdvReac Type Severity Reaction Status Date / Time tetanus toxoid, adsorbed Allergy Severe Swelling Verified 04/22/21 12:12 Sulfa (Sulfonamide Allergy Intermediate Hives Verified 04/22/21 12:12 Antibiotics) prednisone Allergy Mild Rash Verified 04/22/21 12:12 milk Allergy unknown Verified 04/22/21 12:12 poison keyona extract Allergy Rash Verified 04/22/21 12:12 [Poison [place] Extract] pregabalin Allergy Rash Verified 04/22/21 12:12 wool Allergy Hives Verified 04/22/21 12:12 codeine AdvReac Intermediate Nausea and Verified 04/22/21 12:12 Vomiting hydromorphone [From Dilaudid] AdvReac Intermediate Nausea and Verified 04/22/21 12:12 Vomiting naproxen AdvReac Intermediate Stomach Verified 04/22/21 12:12 Upset diclofenac [From Voltaren] AdvReac Mild Indigestion Verified 04/22/21 12:12 ibuprofen AdvReac Mild Stomach Verified 04/22/21 12:12 Upset kiwi Allergy Swelling Uncoded 04/22/21 12:12 strawberries Allergy Hives Uncoded 04/22/21 12:12 Home Meds: Home Meds Multivitamin [Multi-Vitamin Daily] 1 each PO BEDTIME 04/22/13 [History] Omeprazole 40 mg PO DAILY 04/22/13 [History] Acetaminophen [Acetaminophen Extra Strength] 1,000 mg PO TID PRN 03/27/17 [History] Lutein/Zeaxanthin [Lutein-Zeaxanthin 25-5 mg Sfgl] 5 mg PO DAILY 07/04/17 [History] Folic Acid 2 mg PO DAILY 03/20/19 [History] [place]-3/DHA/Epa/Fish Oil [[place] 3 500 Softgel] 1,000 mg PO DAILY 03/20/19 [History] Fluticasone Propionate [Flonase Allergy Relief] 2 spray NASBOTH DAILY 06/21/20 [History] Meclizine [Antivert] 12.5 mg PO TID PRN 06/21/20 [History] Budesonide [Budesonide EC] 3 mg PO DAILY 11/03/20 [History] Furosemide [Lasix] 10 mg PO DAILY PRN 11/03/20 [History] Tolterodine Tartrate [Detrol LA] 4 mg PO DAILY 04/13/21 [History] Past Medical History HEENT History: Reports: Allergic Rhinitis, Impaired Vision, Macular Degeneration, Sinusitis Other HEENT History: wears glasses, early stage of macular degeneration Gastrointestinal History: Reports: Cholelithiasis, Chronic Constipation, Chronic Diarrhea, Gastritis, GERD, Hemorrhoids, Hiatal Hernia, Other (See Below) Other Gastrointestinal History: Barretts esophagus Genitourinary History: Reports: Urinary Incontinence HAND ROUNDER History: Reports: , 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 weakness Neurological History: Reports: Migraines, Neuropathy, Peripheral Endocrine/Metabolic History: Reports: Hypothyroidism, Obesity/BMI 30+ Other Endocrine/Metabolic History: as child thyroid surgery - Infectious Disease History Infectious Disease History: Reports: Chicken Pox, Measles, Mumps - Past Surgical History Head Surgeries/Procedures: Reports: None HEENT Surgical History: Reports: Adenoidectomy, Tonsillectomy, Other (See Below) Other HEENT Surgeries/Procedures: mastoid surgery in left ear at age 4, sinus surgery GI Surgical History: Reports: Appendectomy, Cholecystectomy, Colonoscopy, EGD Female Surgical History: Reports: Other (See Below) Other Female Surgeries/Procedures: bladder suspension Endocrine Surgical History: Reports: None Neurological Surgical History: Reports: Other (See Below) Other Neurological Surgeries/Procedures: Tlif L4 L5 Musculoskeletal Surgical History: Reports: Knee Replacement, ORIF Other Musculoskeletal Surgeries/Procedures:: left knee uni knee. ORIF RT humerus 06/21/20 Dermatological Surgical History: Reports: Other (See Below) Social & Family History - Family History Family Medical History: No Pertinent Family History HEENT: Reports: Allergic Rhinitis Cardiac: Reports: [place] Musculoskeletal: Reports: Back pain, Chronic - Tobacco Use Tobacco Use Status *Q: Never Tobacco User - Caffeine Use Caffeine Use: Reports: Coffee, Tea - Recreational Drug Use Recreational Drug Use: No ED ROS GENERAL - Review of Systems Review Of Systems: See Below Constitutional: Reports: Decreased Appetite HEENT: Reports: No Symptoms Respiratory: Reports: Shortness of Breath, Cough. Denies: Sputum Cardiovascular: Reports: Chest Pain (Epigastric discomfort and left arm pain), Blood Pressure Problem (Patient is quite hypertensive with a pressure of 188/89) Endocrine: Reports: No Symptoms GI/Abdominal: Reports: Abdominal Pain (Epigastric discomfort), Diarrhea (Loose stools yesterday but not today), Nausea, Vomiting (Bilious emesis x2 last evening but not today) : Reports: No Symptoms Musculoskeletal: Reports: No Symptoms Skin: Reports: No Symptoms Neurological: Reports: Headache Psychiatric: Reports: No Symptoms Hematologic/Lymphatic: Reports: No Symptoms Immunologic: Reports: No Symptoms ED EXAM, GENERAL - Physical Exam Exam: See Below Exam Limited By: No Limitations General Appearance: Alert, Anxious, Mild Distress Eye Exam: Bilateral Eye: EOMI, PERRL Throat/Mouth: Normal Inspection, Normal Oropharynx, Normal Voice, No Airway Compromise Head: Atraumatic, Normocephalic Neck: Normal Inspection, Supple Respiratory/Chest: No Respiratory Distress, Lungs Clear, Normal Breath Sounds Cardiovascular: Normal Peripheral Pulses, Regular Rate, Rhythm, No Murmur Peripheral Pulses: 2+: Radial (L), Radial (R), Posterior Tibial (L), Posterior Tibial (R) GI/Abdominal: Soft, Non-Tender, Distended (Mild distention), Abnormal Bowel Sounds (Slightly increased bowel sounds). No: Guarding, Rebound Extremities: Normal Inspection, No Pedal Edema Neurological: Alert, Oriented, Normal Cognition, No Motor/Sensory Deficits Psychiatric: Normal Affect, Normal Mood Skin Exam: Warm, Dry, Intact, Normal Color, No Rash #1 Interpretation EKG Date: 04/22/21 Time: 11:58 Rhythm: NSR Rate (Beats/Min): 88 [place]: Normal P-Wave: Present QRS: Normal (Low voltage in the limb leads, poor R wave progression in the precordial leads) ST-T: Normal QT: Prolonged Comparison: No Change (Unchanged when compared to previous EKG done on 1.) Course - Vital Signs Last Recorded V/S: Last Vital Signs Temp 36.6 C 04/22/21 12:10 Pulse 74 04/22/21 13:58 Resp 16 04/22/21 12:10 BP 137/73 04/22/21 13:58 Pulse Ox 99 04/22/21 13:58 - Orders/Labs/Meds Orders: Active Orders 24 hr Category Date Time Status Sodium Chloride 0.9% [Saline Flush] Med 04/22/21 11:50 Active 10 ml FLUSH ASDIRECTED PRN Isolation [COMM] Stat Oth 04/22/21 11:50 Ordered Saline Lock Insert [OM.PC] Routine Oth 04/22/21 11:50 Ordered EKG 12 Lead [EK] Routine Ther 04/22/21 11:50 Ordered Medication Orders Sodium Chloride (Sodium Chloride 0.9% 10 Ml Syringe) 10 ml FLUSH ASDIRECTED PRN PRN Reason: Keep Vein Open Last Admin: 04/22/21 12:33 Dose: 10 ml Documented by: PREILOR Labs: Laboratory Tests 04/22/21 04/22/21 04/22/21 Range/Units 12:00 12:00 12:00 WBC 7.4 (4.5-11.0) K/uL RBC 4.74 (3.30-5.50) M/uL Hgb 14.9 D (12.0-15.0) g/dL Hct 44.7 (36.0-48.0) % MCV 94 (80-98) fL MCH 31 (27-31) pg MCHC 33 (32-36) % Plt Count 234 (150-400) K/uL Neut % (Auto) 73.9 H (36-66) % Lymph % (Auto) 17.6 L (24-44) % Starr % (Auto) 6.7 H (2-6) % Eos % (Auto) 1.3 L (2-4) % Baso % (Auto) 0.5 (0-1) % Sodium 140 (140-148) mmol/L Potassium 4.2 (3.6-5.2) mmol/L Chloride 103 (100-108) mmol/L Carbon Dioxide 25 (21-32) mmol/L Anion Gap 12.1 (5.0-14.0) mmol/L BUN 13 (7-18) mg/dL Creatinine 0.8 (0.6-1.0) mg/dL Est Cr Clr Drug Dosing 42.32 mL/min Estimated GFR (MDRD) > 60 (>60) Glucose 107 H (74-106) mg/dL Lactic Acid 1.3 (0.4-2.0) mmol/L Calcium 9.0 (8.5-10.1) mg/dL Total Bilirubin 0.5 (0.2-1.0) mg/dL AST 22 (15-37) U/L ALT 33 (12-78) U/L Alkaline Phosphatase 60 (46-116) U/L Troponin I < 0.017 (0.000-0.056) ng/mL C-Reactive Protein 0.30 (0.0-0.3) mg/dL Total Protein 7.3 (6.4-8.2) g/dL Albumin 3.8 (3.4-5.0) g/dL Globulin 3.5 (2.3-3.5) g/dL Albumin/Globulin Ratio 1.1 L (1.2-2.2) Influenza Type A RNA (NEGATIVE) RSV RNA (INAAT) (NEGATIVE) Influenza Type B RNA (NEGATIVE) SARS-CoV-2 RNA (ROLANDO) (NEGATIVE) 04/22/21 Range/Units 12:15 WBC (4.5-11.0) K/uL RBC (3.30-5.50) M/uL Hgb (12.0-15.0) g/dL Hct (36.0-48.0) % MCV (80-98) fL MCH (27-31) pg MCHC (32-36) % Plt Count (150-400) K/uL Neut % (Auto) (36-66) % Lymph % (Auto) (24-44) % Starr % (Auto) (2-6) % Eos % (Auto) (2-4) % Baso % (Auto) (0-1) % Sodium (140-148) mmol/L Potassium (3.6-5.2) mmol/L Chloride (100-108) mmol/L Carbon Dioxide (21-32) mmol/L Anion Gap (5.0-14.0) mmol/L BUN (7-18) mg/dL Creatinine (0.6-1.0) mg/dL Est Cr Clr Drug Dosing mL/min Estimated GFR (MDRD) (>60) Glucose (74-106) mg/dL Lactic Acid (0.4-2.0) mmol/L Calcium (8.5-10.1) mg/dL Total Bilirubin (0.2-1.0) mg/dL AST (15-37) U/L ALT (12-78) U/L Alkaline Phosphatase (46-116) U/L Troponin I (0.000-0.056) ng/mL C-Reactive Protein (0.0-0.3) mg/dL Total Protein (6.4-8.2) g/dL Albumin (3.4-5.0) g/dL Globulin (2.3-3.5) g/dL Albumin/Globulin Ratio (1.2-2.2) Influenza Type A RNA Negative (NEGATIVE) RSV RNA (INAAT) Negative (NEGATIVE) Influenza Type B RNA Negative (NEGATIVE) SARS-CoV-2 RNA (ROLANDO) Negative (NEGATIVE) Meds: Medications Generic Name Dose Route Start Last Admin Trade Name Freq PRN Reason Stop Dose Admin Sodium Chloride 10 ml 04/22/21 11:50 04/22/21 12:33 Sodium Chloride 0.9% 10 Ml Syringe FLUSH 10 ml ASDIRECTED PRN Administration Keep Vein Open Discontinued Medications Generic Name Dose Route Start Last Admin Trade Name Enrique PRN Reason Stop Dose Admin Acetaminophen 1,000 mg 04/22/21 12:36 04/22/21 12:42 Acetaminophen 500 Mg Tab PO 04/22/21 12:37 1,000 mg ONETIME ONE Administration Ondansetron HCl 4 mg 04/22/21 11:50 04/22/21 12:31 Ondansetron 4 Mg/2 Ml Sdv IVPUSH 04/22/21 11:51 4 mg ONETIME ONE Administration - Radiology Interpretation Free Text/Narrative:: I reviewed the one-view portable chest x-ray images as well as the report. There is no acute cardiovascular findings. I reviewed the images of the CT of the abdomen and pelvis without contrast as well as the report. The report shows there is previous cholecystectomy and appendectomy. There are 2 punctate nonobstructing renal calculi in the left kidney. There is moderate atherosclerotic disease throughout the abdomen. There is a small ureterocele. There is certainly nothing to suggest an acute inflammatory process in the small or large intestine. There is no significant or suspicious retroperitoneal adenopathy. There is no evidence for obstruction. - Re-Assessments/Exams Free Text/Narrative Re-Assessment/Exam: 04/22/21 13:22 I reviewed the patient's labs showing a normal CBC, comprehensive metabolic profile, troponin, C-reactive protein, and lactic acid. The patient is negative for COVID-19, RSV, and influenza. Because of the ongoing issues with nausea and bilious vomiting as well as the loose stools, we will proceed with a CT of the abdomen and pelvis without contrast to better visualize this. 04/22/21 14:50 based on the lack of findings on labs or CT of the abdomen pelvis or chest x-ray, this is likely a viral syndrome/viral gastroenteritis which will need to run its course. At this time, the patient is suitable for discharge home. I did reassure that there was no evidence of cardiac involvement with her symptoms. Departure - Departure Time of Disposition: 14:50 Disposition: Home, Self-Care 01 Clinical Impression: Vomiting and diarrhea, Viral syndrome Headache Qualifiers: Headache type: tension-type Headache chronicity pattern: acute headache Intr actability: not intractable Qualified Code(s): G44.209 - Tension-type headache, unspecified, not intractable - Discharge Information Instructions: Viral Gastroenteritis, Adult, [id number], Viral Illness, Adult Referrals: Viviana Bergeron MD [Primary Care Provider] - Forms: ED Department Discharge, ED Department Discharge Care Plan Goals: Your work-up today shows that you likely have a viral gastroenteritis causing her nausea and vomiting. The headache is likely due to the viral illness as well. Please take Tylenol or ibuprofen for the headache. I would recommend following the BRAT diet until the nausea, vomiting, and diarrhea subside. I did send a small amount of Zofran out to the [employer] machine so you may have that on hand at home. Feel free to return for reevaluation should your symptoms worsen. Sepsis Event Note (ED) - Focused Exam Vital Signs: Vital Signs Temp Pulse Resp BP Pulse Ox 04/22/21 13:58 74 137/73 99 04/22/21 13:38 72 155/78 H 96 04/22/21 12:52 76 158/78 H 97 04/22/21 12:10 36.6 C 89 16 188/89 H 98 04/22/21 12:01 36.6 C 89 16 188/89 H 98 - Problem List & Annotations (1) Headache SNOMED Code(s): 14502996 Code(s): R51.9 - HEADACHE, UNSPECIFIED Status: Acute Priority: Medium Current Visit: Yes Qualifiers: Headache type: tension-type Headache chronicity pattern: acute headache Intractability: not intractable Qualified Code(s): G44.209 - Tension-type headache, unspecified, not intractable (2) Viral syndrome SNOMED Code(s): 51659517 Code(s): B34.9 - VIRAL INFECTION, UNSPECIFIED Status: Acute Priority: Medium Current Visit: Yes (3) Vomiting and diarrhea SNOMED Code(s): 922578998 Code(s): R11.10 - VOMITING, UNSPECIFIED; R19.7 - DIARRHEA, UNSPECIFIED Status: Acute Priority: Medium Current Visit: Yes - Problem List Review Problem List Initiated/Reviewed/Updated: Yes - My Orders Last 24 Hours: My Active Orders 04/22/21 11:50 Sodium Chloride 0.9% [Saline Flush] 10 ml FLUSH ASDIRECTED PRN Isolation [COMM] Stat Saline Lock Insert [OM.PC] Routine EKG 12 Lead [EK] Routine - Assessment/Plan Last 24 Hours: My Active Orders 04/22/21 11:50 Sodium Chloride 0.9% [Saline Flush] 10 ml FLUSH ASDIRECTED PRN Isolation [COMM] Stat Saline Lock Insert [OM.PC] Routine EKG 12 Lead [EK] Routine
[2021-04-22] MEDS ORDERED: Acetaminophen 500 MG Tab PO ONE (12:36)
[2021-04-22 12:42] LABS: CORONAVIRUS COVID-19 NAA NEGATIVE (NEGATIVE)
--- NOTE | 2021-04-22 12:56 | CR ---
CHEST: Portable 04/22/2021 at 12:18 PM CLINICAL HISTORY:Chest pain COMPARISON:CT 10/04/2017 FINDINGS: The heart size, pulmonary vascularity and hilar structures are normal. No infiltrate effusion or pneumothorax is seen. There are atherosclerotic changes in the aorta. IMPRESSION: No acute cardiopulmonary process.
[2021-04-22 13:59] VITALS: BP 137/73; PULSE 74
--- NOTE | 2021-04-22 14:26 | CT ---
Abdomen Pelvis wo Cont CLINICAL HISTORY: Vomiting, diarrhea, epigastric pain COMPARISON: 2016. TECHNIQUE: Axial tomographic images are obtained from the dome of the diaphragm to the pubic symphysis without IV contrast enhancement. No oral contrast was used. The dosage reduction and iterative reconstruction techniques employed. FINDINGS: The lung bases are clear. The liver shows no focal mass or biliary dilatation. The gallbladder has been removed. The spleen has a normal size and shape. The pancreas shows no mass or inflammatory change. The adrenal glands appear normal bilaterally. The kidneys there are 2 punctate calcifications in the midpole of the left kidney. There is no hydronephrosis. Ureters have a normal course and caliber. There is downward convexity in the central bladder base which may represent a ureterocele. The aorta contains moderate calcified plaque. There is also plaque seen in the proximal visceral vessels some mild celiac artery origin stenosis is suspected. There is also moderate plaque in the proximal renal arteries.. There is no suspicious retroperitoneal adenopathy. Small intestinal configuration is nonacute. There is gas and feces throughout the colon. There has been previous appendectomy. There is some diverticulosis in the sigmoid colon without evidence of diverticulitis IMPRESSION: Previous cholecystectomy and appendectomy 2 punctate nonobstructing renal calculi left kidney Moderate atherosclerotic vascular disease Small ureterocele
== END 2021-04-22 15:06 | disposition home or self-care (01) ==
LOC: JP.ED 11:44
DX: G44.209 Tension-type headache, unspecified, not intractable (principal); B34.9 Viral infection, unspecified; K21.9 Gastro-esophageal reflux disease without esophagitis; E03.9 Hypothyroidism, unspecified; E66.9 Obesity, unspecified; Z68.31 Body mass index [BMI] 31.0-31.9, adult; Z88.7 Allergy status to serum and vaccine; Z88.2 Allergy status to sulfonamides; Z88.8 Allergy status to other drugs, medicaments and biological substances; Z91.011 Allergy to milk products; Z91.048 Other nonmedicinal substance allergy status; Z88.5 Allergy status to narcotic agent; Z88.6 Allergy status to analgesic agent; Z91.018 Allergy to other foods; Z79.899 Other long term (current) drug therapy; Z20.822 Contact with and (suspected) exposure to COVID-19
CPT/HCPCS: 0241U; 36415; 71045; 74176; 80053; 83605; 84484; 85025; 86140; 93005; 96374; 99284; A9270; J2405

== ENCOUNTER → 2022-03-21 | Day surgery (SDC) | payer MEDICARE, OTHER ==
[~2022-03-21] MED LIST changes: -Bupivacaine 0.5% 30 ML SDV ONE; -Bupivacaine 0.5% 50 ML MDV ONE; -Dexamethasone 4 MG/ML SDV ONE; +Dextrose 5%-Lactated Ringers 1,000 ML IV SCH; -Glycopyrrolate 0.2 MG/ML 5 ML MDV ONE; -Lactated Ringers 1,000 ML IV SCH; -Lactated Ringers 1,000 ML ONE; -Neostigmine Methylsulfate 1 MG/ML 5 ML Syringe ONE; -Nozin Nasal Sanitizer NASBOTH ONE; -Ondansetron 4 MG/2 ML SDV ONE; -Rocuronium 50 MG/5 ML Vial ONE; -ceFAZolin 2 GM in Premix Bag 1 BAG IV ONE; +fentaNYL 100 MCG/2 ML SDV ONE; -fentaNYL 250 MCG/5 ML SDV ONE
== END ==
LOC: JP.SDS 06:00
PROVIDERS: ATTEND Surgery
DX: K31.A0 Gastric intestinal metaplasia, unspecified (principal); K29.70 Gastritis, unspecified, without bleeding; K21.9 Gastro-esophageal reflux disease without esophagitis; E66.9 Obesity, unspecified; Z88.2 Allergy status to sulfonamides; Z88.5 Allergy status to narcotic agent; Z88.8 Allergy status to other drugs, medicaments and biological substances; Z88.6 Allergy status to analgesic agent; Z88.7 Allergy status to serum and vaccine; Z79.899 Other long term (current) drug therapy
CPT/HCPCS: 43239; 88305; C1726; J2704; J3010; J7121

== ENCOUNTER 2022-04-12 13:57 | Inpatient (IN) | payer MEDICARE, OTHER ==
[2022-04-12] MEDS ORDERED: Ondansetron 4 MG Tab.DIS PO ONE (18:10)
[2022-04-12 18:47] LABS: ESTIMATED GFR 87 mL/min (>60)
[2022-04-12] MEDS ORDERED: Sodium Chloride 0.9% 1,000 ML IV SCH (20:30)
[2022-04-12] MEDS ORDERED: cefTRIAXone 1 GM in Sodium Chloride 0.9% 50 ML IV ONE (20:46)
[2022-04-12] MEDS ORDERED: Ondansetron 4 MG Tab.DIS PO PRN (22:27)
[2022-04-12] MEDS ORDERED: Enoxaparin 30 MG/0.3 ML Syringe SUBCUT SCH (22:27)
[2022-04-12] MEDS ORDERED: Magnesium Hydroxide 400 MG/5 ML Susp 30 ML Cup PO PRN (22:27)
[2022-04-12] MEDS ORDERED: Melatonin 3 MG Tab PO PRN (22:27)
[2022-04-12] MEDS: Enoxaparin 40 MG/0.4 ML Syringe SUBCUT SCH (22:59)
[2022-04-12] MEDS: Diclofenac Sodium 1% Gel 100 GM Tube TOP PRN (23:10)
[2022-04-13] MEDS: Acetaminophen 325 MG Tab PO PRN ×5 (00:28→21:53)
[2022-04-13] MEDS: Sodium Chloride 0.9% 1,000 ML IV SCH ×2 (04:34→12:56)
[2022-04-13] MEDS ORDERED: Pantoprazole 40 MG Tab.CR PO SCH (07:30)
[2022-04-13] MEDS: Pantoprazole 40 MG Tab.CR PO SCH (08:06)
[2022-04-13] MEDS ORDERED: Non-Formulary Medication 1 Each (Tolterodine Tartrate [Detrol La] 4 MG Cap.Er.24h) PO SCH (09:00)
[2022-04-13] MEDS: Folic Acid 1 MG Tab PO SCH (09:28)
[2022-04-13] MEDS: Budesonide 3 MG Cap.ER PO SCH (09:28)
[2022-04-13] MEDS: Trospium 20 MG Tab PO SCH ×2 (09:28→21:43)
[2022-04-13] MEDS: Diclofenac Sodium 1% Gel 100 GM Tube TOP PRN ×2 (09:30→19:42)
[2022-04-13] MEDS: Calcium Carbonate 500 MG Tab.Chew PO PRN (18:07)
[2022-04-13] MEDS: cefTRIAXone 1 GM in Sodium Chloride 0.9% 50 ML IV SCH (21:43)
[2022-04-13] MEDS: Enoxaparin 40 MG/0.4 ML Syringe SUBCUT SCH (21:43)
[2022-04-14] MEDS: Acetaminophen 325 MG Tab PO PRN (02:12)
[2022-04-14] MEDS: Calcium Carbonate 500 MG Tab.Chew PO PRN ×2 (03:34→05:05)
[2022-04-14] MEDS: Ondansetron 4 MG/2 ML SDV IV PRN ×3 (07:26→22:31)
[2022-04-14] MEDS ORDERED: LORazepam 2 MG/ML SDV IVPUSH ONE (08:32)
[2022-04-14] MEDS: Pantoprazole 40 MG Tab.CR PO SCH (09:03)
[2022-04-14] MEDS: Pantoprazole 40 MG Vial IVPUSH SCH (09:04)
[2022-04-14] MEDS ORDERED: Iopamidol 612 MG/ML 100 ML Bottle IV ONE (10:57)
[2022-04-14] MEDS ORDERED: Sodium Chloride 0.9% 100 ML IV ONE (10:57)
[2022-04-14] MEDS: Sodium Chloride 0.9% 1,000 ML IV SCH ×2 (11:07→21:36)
[2022-04-14] MEDS: Budesonide 3 MG Cap.ER PO SCH (11:08)
[2022-04-14] MEDS: Trospium 20 MG Tab PO SCH ×2 (11:08→21:44)
[2022-04-14] MEDS: Folic Acid 1 MG Tab PO SCH (11:08)
[2022-04-14 11:26] LABS: ESTIMATED GFR 74 mL/min (>60)
[2022-04-14] MEDS: Potassium Chloride 10 MEQ in Premix Bag 1 BAG IV SCH ×4 (15:42→20:21)
[2022-04-14] MEDS: Diclofenac Sodium 1% Gel 100 GM Tube TOP PRN (20:25)
[2022-04-14] MEDS: Enoxaparin 40 MG/0.4 ML Syringe SUBCUT SCH (20:29)
[2022-04-14] MEDS: cefTRIAXone 1 GM in Sodium Chloride 0.9% 50 ML IV SCH (22:19)
[2022-04-15] MEDS: Acetaminophen 650 MG Supp RECTAL PRN (01:57)
[2022-04-15] MEDS: Ondansetron 4 MG/2 ML SDV IV PRN (07:04)
[2022-04-15] MEDS: Sodium Chloride 0.9% 1,000 ML IV SCH ×5 (07:07→16:51)
[2022-04-15] MEDS: Budesonide 3 MG Cap.ER PO SCH (09:27)
[2022-04-15] MEDS: Folic Acid 1 MG Tab PO SCH (09:27)
[2022-04-15] MEDS: Pantoprazole 40 MG Vial IVPUSH SCH (09:32)
[2022-04-15] MEDS: Trospium 20 MG Tab PO SCH ×2 (10:17→20:52)
[2022-04-15] MEDS: RESTASIS EYEBOTH SCH ×2 (12:40→20:53)
[2022-04-15] MEDS: FLUOROMETHOLONE 0.1% EYEBOTH SCH ×2 (12:41→20:53)
[2022-04-15] MEDS: Enoxaparin 40 MG/0.4 ML Syringe SUBCUT SCH (20:53)
[2022-04-15] MEDS: cefTRIAXone 1 GM in Sodium Chloride 0.9% 50 ML IV SCH (20:54)
[2022-04-15] MEDS: Diclofenac Sodium 1% Gel 100 GM Tube TOP PRN (20:55)
[2022-04-16] MEDS: Acetaminophen 650 MG Supp RECTAL PRN (01:04)
[2022-04-16] MEDS: Sodium Chloride 0.9% 1,000 ML IV SCH ×3 (01:29→21:40)
[2022-04-16] MEDS: Budesonide 3 MG Cap.ER PO SCH (08:28)
[2022-04-16] MEDS: RESTASIS EYEBOTH SCH ×3 (08:29→20:43)
[2022-04-16] MEDS: FLUOROMETHOLONE 0.1% EYEBOTH SCH ×3 (08:30→20:43)
[2022-04-16] MEDS: Trospium 20 MG Tab PO SCH ×2 (08:31→20:42)
[2022-04-16] MEDS: Folic Acid 1 MG Tab PO SCH (08:31)
[2022-04-16] MEDS ORDERED: Potassium Chloride Riders 40 MEQ in Premix Bag 1 BAG IV ONE (09:00)
[2022-04-16] MEDS: Potassium Chloride 10 MEQ in Premix Bag 1 BAG IV SCH ×7 (09:16→18:30)
[2022-04-16] MEDS: Pantoprazole 40 MG Vial IVPUSH SCH (09:16)
[2022-04-16] MEDS: Acetaminophen 325 MG Tab PO PRN (13:21)
[2022-04-16] MEDS: Ondansetron 4 MG/2 ML SDV IV PRN (18:00)
[2022-04-16] MEDS: Bacitracin Oint 28.35 GM Tube TOP SCH ×2 (18:12→20:41)
[2022-04-16] MEDS: cefTRIAXone 1 GM in Sodium Chloride 0.9% 50 ML IV SCH (20:37)
[2022-04-16] MEDS: Enoxaparin 40 MG/0.4 ML Syringe SUBCUT SCH (20:41)
[2022-04-16] MEDS: Dextrose 5%-Lactated Ringers 1,000 ML IV SCH (21:36)
[2022-04-17 05:02] LABS: ESTIMATED GFR 87 mL/min (>60)
[2022-04-17] MEDS: Sodium Chloride 0.9% 1,000 ML IV SCH ×2 (05:14→14:16)
[2022-04-17] MEDS: FLUOROMETHOLONE 0.1% EYEBOTH SCH ×2 (08:40→23:08)
[2022-04-17] MEDS: RESTASIS EYEBOTH SCH ×2 (08:44→23:08)
[2022-04-17] MEDS: Pantoprazole 40 MG Vial IVPUSH SCH (08:59)
[2022-04-17] MEDS: Folic Acid 1 MG Tab PO SCH (08:59)
[2022-04-17] MEDS: Bacitracin Oint 28.35 GM Tube TOP SCH ×3 (08:59→21:13)
[2022-04-17] MEDS: Trospium 20 MG Tab PO SCH ×2 (08:59→23:13)
[2022-04-17] MEDS ORDERED: Magnesium Sulfate/Water 2 GM in Premix Bag 1 BAG IV ONE (10:00)
[2022-04-17] MEDS: Dextrose 5%-Lactated Ringers 1,000 ML IV SCH ×2 (11:02→23:07)
[2022-04-17] MEDS: Potassium Chloride 10 MEQ in Premix Bag 1 BAG IV SCH ×4 (11:07→14:40)
[2022-04-17] MEDS: Budesonide 3 MG Cap.ER PO SCH (13:41)
[2022-04-17] MEDS ORDERED: Benzocaine/Cetylpyridinium/Menthol Lozenge MUCMEM PRN (16:06)
[2022-04-17] MEDS: Enoxaparin 40 MG/0.4 ML Syringe SUBCUT SCH (23:08)
[2022-04-18] MEDS: FLUOROMETHOLONE 0.1% EYEBOTH SCH ×3 (08:23→21:00)
[2022-04-18] MEDS: Bacitracin Oint 28.35 GM Tube TOP SCH ×4 (08:24→21:00)
[2022-04-18] MEDS: RESTASIS EYEBOTH SCH ×3 (08:24→21:00)
[2022-04-18] MEDS: Trospium 20 MG Tab PO SCH ×3 (08:25→21:00)
[2022-04-18] MEDS: Budesonide 3 MG Cap.ER PO SCH (08:25)
[2022-04-18] MEDS: Pantoprazole 40 MG Vial IVPUSH SCH (08:25)
[2022-04-18] MEDS: Folic Acid 1 MG Tab PO SCH (08:25)
[2022-04-18] MEDS: Dextrose 5%-Lactated Ringers 1,000 ML IV SCH (09:41)
[2022-04-18] MEDS ORDERED: Mineral Oil/Petrolatum/Phenylephrine/Shark Liver Oil Oint 57 GM Tube RECTAL PRN (10:56)
[2022-04-18] MEDS ORDERED: Potassium Chloride 20 MEQ Tab.ER PO ONE (14:15)
[2022-04-18] MEDS: Enoxaparin 40 MG/0.4 ML Syringe SUBCUT SCH ×2 (19:43→21:00)
[2022-04-19] MEDS: Acetaminophen 325 MG Tab PO PRN (04:22)
[2022-04-19] MEDS ORDERED: Pantoprazole 40 MG Tab.CR PO SCH (07:30)
[2022-04-19] MEDS: RESTASIS EYEBOTH SCH (08:35)
[2022-04-19] MEDS: Bacitracin Oint 28.35 GM Tube TOP SCH ×2 (08:35→14:53)
[2022-04-19] MEDS: FLUOROMETHOLONE 0.1% EYEBOTH SCH (08:35)
[2022-04-19] MEDS: Folic Acid 1 MG Tab PO SCH (08:37)
[2022-04-19] MEDS: Trospium 20 MG Tab PO SCH (08:37)
[2022-04-19] MEDS: Budesonide 3 MG Cap.ER PO SCH (08:37)
[2022-04-19 14:50] VITALS: BP 136/69; PULSE 79
== END 2022-04-19 15:35 | disposition home health service (06) | DRG 389 ==
LOC: JP.ED 13:57 → JP.MS 21:43 → OBSVTOIN 04-13 15:45
PROVIDERS: ADMIT Hospitalist; ATTEND Internal Medicine
PROC: 0D9670Z Drainage of Stomach with Drainage Device, Via Natural or Artificial Opening (ICD-10-PCS; principal; 2022-04-16)
DX: K56.600 Partial intestinal obstruction, unspecified as to cause (principal); E87.1 Hypo-osmolality and hyponatremia; R11.14 Bilious vomiting; N39.0 Urinary tract infection, site not specified; K44.9 Diaphragmatic hernia without obstruction or gangrene; K52.9 Noninfective gastroenteritis and colitis, unspecified; E87.6 Hypokalemia; Z66 Do not resuscitate; G62.9 Polyneuropathy, unspecified; M19.90 Unspecified osteoarthritis, unspecified site; Z20.822 Contact with and (suspected) exposure to COVID-19; K22.70 Barrett's esophagus without dysplasia; Z91.048 Other nonmedicinal substance allergy status; M54.50 Low back pain, unspecified; G89.29 Other chronic pain; H54.7 Unspecified visual loss; K59.09 Other constipation; K21.9 Gastro-esophageal reflux disease without esophagitis; Z96.652 Presence of left artificial knee joint; M10.9 Gout, unspecified; E03.9 Hypothyroidism, unspecified; Z85.828 Personal history of other malignant neoplasm of skin; R32 Unspecified urinary incontinence; Z90.49 Acquired absence of other specified parts of digestive tract; Z79.899 Other long term (current) drug therapy; Z88.7 Allergy status to serum and vaccine; Z88.2 Allergy status to sulfonamides; Z88.8 Allergy status to other drugs, medicaments and biological substances; Z88.5 Allergy status to narcotic agent; Z91.011 Allergy to milk products; Z91.018 Allergy to other foods
CPT/HCPCS: 36415 ×2; 80048; 80053; 81001; 83605; 83735; 85025; 85027; 87086; 96365; 97110; 97161; 99284; A9270 ×8; J0696; J1650; J7030 ×3; Q0162; U0002; 71045; 74019; 74021; 74177; 84100; 96361; 96372; 97140-GP; 97165-GO; 97530-GP; C9113; G0378; J2060; J2405; J3475; J3480; J3490; J7121; Q9967

== ENCOUNTER 2023-03-04 08:56 | Emergency (ER) | payer MEDICARE, OTHER ==
[2023-03-04 09:22] VITALS: BP 186/80; PULSE 79
[2023-03-04 10:10] LABS: BASOPHILS ABSOLUTE AUTO 0.03 K/uL (0.00-0.10); BASOPHILS PERCENT AUTO 0.6 % (0.1-1.3); EOSINOPHILS ABSOLUTE AUTO 0.06 K/uL (0.00-0.40); EOSINOPHILS PERCENT AUTO 1.2 % (0.0-5.4); HEMATOCRIT 39.8 % (34.3-46.0); IMMATURE GRAN PERCENT AUTO 0.2 % (0.0-0.7); LYMPHOCYTES PERCENT AUTO 29.3 % (11.4-47.7); MEAN CORPUSCULAR HEMOGLOBIN 31.4 pg (31.6-35.5); MEAN CORPUSCULAR HGB CONC 32.7 g/dL (31.6-35.5); MEAN CORPUSCULAR VOLUME 96.1 fL (81.4-99.0); MONOCYTES ABSOLUTE AUTO 0.57 K/uL (0.20-0.90); MONOCYTES PERCENT AUTO 11.1 % (3.3-12.6); NEUTROPHILS ABSOLUTE AUTO 2.95 K/uL (1.0-7.6); NEUTROPHILS PERCENT AUTO 57.6 % (40.0-78.1); PLATELET COUNT,PLT 225 K/uL (130-375); RED BLOOD CELL COUNT 4.14 M/uL (3.77-5.24); WHITE BLOOD CELL COUNT,WBC 5.1 K/uL (3.2-11.0)
[2023-03-04 10:15] LABS: IMMATURE GRAN ABSOLUTE AUTO 0.01 K/uL (0.00-0.23)
[2023-03-04 10:28] LABS: CALCIUM 8.8 mg/dL (8.5-10.1); CREATININE 0.7 mg/dL (0.6-1.0); EST CRCL DRUG DOSING (CG) 46.76 mL/min; POTASSIUM,K 3.3 mmol/L (3.6-5.2)
[2023-03-04 10:32] LABS: ANION GAP 9.3 mmol/L (5.0-14.0)
== END 2023-03-04 11:49 | disposition home or self-care (01) ==
LOC: JP.ED 08:56
DX: R19.7 Diarrhea, unspecified (principal); K21.9 Gastro-esophageal reflux disease without esophagitis; Z88.0 Allergy status to penicillin; Z88.1 Allergy status to other antibiotic agents; Z88.2 Allergy status to sulfonamides; Z91.011 Allergy to milk products; Z91.018 Allergy to other foods; Z91.048 Other nonmedicinal substance allergy status; Z88.5 Allergy status to narcotic agent; Z88.6 Allergy status to analgesic agent; Z88.8 Allergy status to other drugs, medicaments and biological substances; Z79.899 Other long term (current) drug therapy
CPT/HCPCS: 36415; 80048; 83605; 85025; 86140; 87046; 87899; 89055; 99283; 99284

== ENCOUNTER 2023-09-25 07:31 | Day surgery (SDC) | payer MEDICARE, OTHER ==
[~2023-09-25 07:31] MED LIST changes: -Dextrose 5%-Lactated Ringers 1,000 ML IV SCH; -fentaNYL 100 MCG/2 ML SDV ONE; +fentaNYL 50 MCG/ML SDV ONE
[2023-09-25] MEDS: Lactated Ringers 1,000 ML IV SCH (07:57)
[2023-09-25 09:59] VITALS: BP 163/77; PULSE 72
== END 2023-09-25 10:18 | disposition home or self-care (01) ==
LOC: JP.SDS 07:31
PROVIDERS: ATTEND Family Medicine
DX: K29.50 Unspecified chronic gastritis without bleeding (principal); K22.70 Barrett's esophagus without dysplasia; I10 Essential (primary) hypertension; Z88.2 Allergy status to sulfonamides
CPT/HCPCS: 43239; 88305; J2704; J3010; J7120

== ENCOUNTER 2023-10-25 07:01 | Day surgery (SDC) | payer MEDICARE, OTHER ==
[2023-10-25] MEDS: Sodium Chloride 0.9% 10 ML Syringe FLUSH PRN (07:22)
[2023-10-25] MEDS ORDERED: Midazolam 1 MG/ML 2 ML SDV ONE (07:49)
[2023-10-25 08:28] VITALS: BP 161/68; PULSE 73
== END 2023-10-25 08:46 | disposition home or self-care (01) ==
LOC: JP.SDS 07:01
PROVIDERS: ATTEND Ophthalmology
DX: H25.11 Age-related nuclear cataract, right eye (principal); K21.9 Gastro-esophageal reflux disease without esophagitis
CPT/HCPCS: J2250; J3490

== ENCOUNTER 2024-09-16 09:17 | Emergency (ER) | payer MEDICARE, OTHER ==
[2024-09-16 09:46] LABS: BASOPHILS ABSOLUTE AUTO 0.05 K/uL (0.00-0.10); BASOPHILS PERCENT AUTO 0.6 % (0.1-1.3); EOSINOPHILS ABSOLUTE AUTO 0.07 K/uL (0.00-0.40); EOSINOPHILS PERCENT AUTO 0.8 % (0.0-5.4); HEMATOCRIT 40.1 % (34.3-46.0); HEMOGLOBIN 13.4 g/dL (11.2-15.5); IMMATURE GRAN PERCENT AUTO 0.2 % (0.0-0.7); LYMPHOCYTES PERCENT AUTO 13.1 % (11.4-47.7); MEAN CORPUSCULAR HEMOGLOBIN 32.4 pg (31.6-35.5); MEAN CORPUSCULAR HGB CONC 33.4 g/dL (31.6-35.5); MEAN CORPUSCULAR VOLUME 96.9 fL (81.4-99.0); MONOCYTES ABSOLUTE AUTO 0.63 K/uL (0.20-0.90); MONOCYTES PERCENT AUTO 7.5 % (3.3-12.6); NEUTROPHILS ABSOLUTE AUTO 6.54 K/uL (1.0-7.6); NEUTROPHILS PERCENT AUTO 77.8 % (40.0-78.1); PLATELET COUNT,PLT 199 K/uL (130-375); RED BLOOD CELL COUNT 4.14 M/uL (3.77-5.24); WHITE BLOOD CELL COUNT,WBC 8.4 K/uL (3.2-11.0)
[2024-09-16 09:50] LABS: IMMATURE GRAN ABSOLUTE AUTO 0.02 K/uL (0.00-0.23)
[2024-09-16 10:07] LABS: ALANINE AMINOTRANSFERASE,ALT 73 U/L (12-78); ALBUMIN 3.3 g/dL (3.4-5.0); ALKALINE PHOSPHATASE 98 U/L (46-116); ASPARTATE AMNIOTRANSFERASE,AST 155 U/L (15-37); BILIRUBIN TOTAL 0.6 mg/dL (0.2-1.0); BLOOD UREA NITROGEN,BUN 9 mg/dL (7-18); CALCIUM 9.6 mg/dL (8.5-10.1); CARBON DIOXIDE,CO2 27 mmol/L (21-32); CHLORIDE,CL 96 mmol/L (100-108); CREATININE 0.8 mg/dL (0.6-1.0); ESTIMATED GFR 73 mL/min (>60); GLUCOSE RANDOM 106 mg/dL (74-106); POTASSIUM,K 3.6 mmol/L (3.6-5.2); PROTEIN TOTAL,TP 6.7 g/dL (6.4-8.2); SODIUM,NA 134 mmol/L (140-148)
[2024-09-16 10:10] LABS: ANION GAP 14.6 mmol/L (5.0-14.0)
[2024-09-16 11:24] VITALS: BP 158/69; PULSE 62
== END 2024-09-16 12:00 | disposition home or self-care (01) ==
LOC: JP.ED 09:17
DX: R19.7 Diarrhea, unspecified (principal); E66.9 Obesity, unspecified; K21.9 Gastro-esophageal reflux disease without esophagitis; Z88.7 Allergy status to serum and vaccine; Z88.2 Allergy status to sulfonamides; Z88.8 Allergy status to other drugs, medicaments and biological substances; Z88.6 Allergy status to analgesic agent; Z91.011 Allergy to milk products; Z91.018 Allergy to other foods; Z79.899 Other long term (current) drug therapy; Z79.51 Long term (current) use of inhaled steroids; Z90.710 Acquired absence of both cervix and uterus
CPT/HCPCS: 36415; 71046; 80053; 84484; 85025; 93005; 99285

== ENCOUNTER 2025-02-15 15:32 | Emergency (ER) | payer MEDICARE, OTHER ==
[2025-02-15 19:36] LABS: APPEARANCE,URINE CLEAR (CLEAR); GLUCOSE,URINE NEGATIVE (NEGATIVE); OCCULT BLOOD,URINE TRACE-INTACT (NEGATIVE)
[2025-02-15 19:42] LABS: SQUAMOUS EPITHELIAL CELLS,UR RARE /HPF; UROTHELIAL CELLS,URINE NOT SEEN /HPF
[2025-02-15 19:43] LABS: BASOPHILS ABSOLUTE AUTO 0.04 K/uL (0.00-0.10); BASOPHILS PERCENT AUTO 0.5 % (0.1-1.3); EOSINOPHILS ABSOLUTE AUTO 0.05 K/uL (0.00-0.40); EOSINOPHILS PERCENT AUTO 0.6 % (0.0-5.4); IMMATURE GRAN PERCENT AUTO 0.2 % (0.0-0.7); LYMPHOCYTES ABSOLUTE AUTO 1.32 K/uL (0.8-3.3); LYMPHOCYTES PERCENT AUTO 15.9 % (11.4-47.7); MONOCYTES ABSOLUTE AUTO 0.70 K/uL (0.20-0.90); MONOCYTES PERCENT AUTO 8.4 % (3.3-12.6); NEUTROPHILS ABSOLUTE AUTO 6.17 K/uL (1.0-7.6); NEUTROPHILS PERCENT AUTO 74.4 % (40.0-78.1); PLATELET COUNT,PLT 230 K/uL (130-375); RED BLOOD CELL COUNT 4.34 M/uL (3.77-5.24); WHITE BLOOD CELL COUNT,WBC 8.3 K/uL (3.2-11.0)
[2025-02-15 19:53] LABS: IMMATURE GRAN ABSOLUTE AUTO 0.02 K/uL (0.00-0.23)
[2025-02-15 20:04] LABS: A/G RATIO 1.0 (1.2-2.2); ALANINE AMINOTRANSFERASE,ALT 25 U/L (12-78); ASPARTATE AMNIOTRANSFERASE,AST 20 U/L (15-37); BILIRUBIN TOTAL 0.5 mg/dL (0.2-1.0); BLOOD UREA NITROGEN,BUN 9 mg/dL (7-18); CARBON DIOXIDE,CO2 27 mmol/L (21-32); CHLORIDE,CL 95 mmol/L (100-108); CREATININE 0.5 mg/dL (0.6-1.0); EST CRCL DRUG DOSING (CG) 63.20 mL/min; ESTIMATED GFR 92 mL/min (>60); GLUCOSE RANDOM 107 mg/dL (74-106); POTASSIUM,K 3.5 mmol/L (3.6-5.2); PROTEIN TOTAL,TP 7.4 g/dL (6.4-8.2); SODIUM,NA 132 mmol/L (140-148)
[2025-02-15 20:09] LABS: LACTIC ACID 0.9 mmol/L (0.4-2.0)
[2025-02-15] MEDS ORDERED: Na Phos,M-B/Na Phos,DI-B 60 ML, Mineral Oil 50 ML, Docusate Sodium 400 MG, Magnesium Ci... RECTAL ONE (20:15)
[2025-02-15 21:48] VITALS: BP 157/64; PULSE 70
== END 2025-02-15 21:54 | disposition home or self-care (01) ==
LOC: JP.ED 15:32
DX: K59.00 Constipation, unspecified (principal); Z88.2 Allergy status to sulfonamides; Z88.8 Allergy status to other drugs, medicaments and biological substances; Z91.02 Food additives allergy status; Z91.011 Allergy to milk products; Z88.5 Allergy status to narcotic agent; Z79.899 Other long term (current) drug therapy; Z90.49 Acquired absence of other specified parts of digestive tract
CPT/HCPCS: 36415; 80053; 81001; 83605; 83690; 85025; 86140; 99284

== ENCOUNTER 2025-03-07 03:14 | Emergency (ER) | payer MEDICARE, OTHER ==
[2025-03-07] MEDS: Ketorolac 30 MG/ML SDV IM ONE (04:04)
[2025-03-07 05:36] VITALS: BP 177/57; PULSE 71
== END 2025-03-07 07:40 | disposition home or self-care (01) ==
LOC: JP.ED 03:14
DX: S30.0XXA Contusion of lower back and pelvis, initial encounter (principal); E66.9 Obesity, unspecified; Z90.49 Acquired absence of other specified parts of digestive tract; Z79.899 Other long term (current) drug therapy; Z88.5 Allergy status to narcotic agent; Z91.0110 Allergy to milk products, unspecified; Z91.018 Allergy to other foods; Z91.048 Other nonmedicinal substance allergy status; Z88.6 Allergy status to analgesic agent; Z88.8 Allergy status to other drugs, medicaments and biological substances; Z88.2 Allergy status to sulfonamides; Z68.27 Body mass index [BMI] 27.0-27.9, adult; Z88.7 Allergy status to serum and vaccine; W01.198A Fall on same level from slipping, tripping and stumbling with subsequent striking against other object, initial encounter; Y92.002 Bathroom of unspecified non-institutional (private) residence as the place of occurrence of the external cause
CPT/HCPCS: 96372; 99283; J1885